=== PATIENT | female | born 1960 | race Caucasian/White ===

== ENCOUNTER → 2017-06-30 | Outpatient (CLI) | payer MEDICARE, MEDICAID ==
[~2017-06-30] MED LIST: ALBU17AE23 IH; ALBU8.5H2 IH; ASP81TEC PO; BUDE6HFA IH; BUDE6HFA INH; CEFU500T PO; CLAR-19 PO; CTLP20T PO; CYAN10007 PO; DOCU100C37 PO; DOXY100C42 PO; FLUO20CA25 PO; FLUT1DIS26 IH; HYDR-3816 PO; HYDR-700 PO; HYDR1TAB PO; IBUP-1773 PO; LEVA1.25 IH; LORA1TAB PO; LTH450TCR PO; LVT.1T PO; MAG30ORA2 PO; MULT-927 PO; NIAC1TBM5 PO; OXYGEN; PRCD5U PO; PRD20T PO; RT-ALBUINH IH; SEIZURE MEDICATION PO; SERT100T8 PO; SERT25TA PO; SERT50TA2 PO; SIME80TA16 PO; THYR90TA PO; TIOT18CA IH; TIOT18CA2 IH; TOPI100T2 PO; TRAM-21 PO
--- NOTE | 2017-06-30 12:56 | Diagnostic Imaging Report ---
INDICATION: Abdominal pain. FINDINGS: There are nonobstructing stones in the kidneys bilaterally. The bowel gas pattern is nonspecific. The osseous structures are unremarkable. IMPRESSION: Bilateral nephrolithiasis left greater than right. Nonspecific bowel gas pattern. Dictated by: Dictated on workstation # [id number]
== END ==
LOC: RAD 12:09
PROVIDERS: ATTEND Urology
DX: N20.0 Calculus of kidney (principal)
CPT/HCPCS: 74018

== ENCOUNTER 2017-07-11 05:29 | Outpatient (CLI) | payer MEDICARE, MEDICAID ==
[~2017-07-11] VITALS: Ht 172.7 cm; Wt 70.3 kg
[~2017-07-11 05:29] MED LIST changes: -GLYC10.7 IH; -HYDR-3875 PO; -IPRA0.2S51 IH; -NITR-65 PO; -PRAZ1CAP2 PO; -SERT50TA9 PO; -TAMS0.4C98 PO
[2017-07-11] MEDS ORDERED: GLYC10.7 IH (12:30)
[2017-07-11] MEDS ORDERED: SERT50TA9 PO (12:30)
[2017-07-11] MEDS ORDERED: PRAZ1CAP2 PO (12:30)
[2017-07-11] MEDS ORDERED: LTH450TCR PO (12:30)
[2017-07-11] MEDS ORDERED: IPRA0.2S51 IH (12:30)
== END 2017-07-11 14:03 ==
LOC: PREOP 05:29
PROVIDERS: ATTEND Urology
DX: Z01.818 Encounter for other preprocedural examination (principal); N20.0 Calculus of kidney

== ENCOUNTER → 2017-07-11 | Outpatient (CLI) | payer MEDICARE, MEDICAID ==
[~2017-07-11] MED LIST changes: +GLYC10.7 IH; +HYDR-34 PO; -HYDR-3816 PO; +HYDR-3875 PO; +IPRA0.2S51 IH; +NITR-65 PO; +PRAZ1CAP2 PO; +SERT50TA9 PO; +TAMS0.4C98 PO
--- NOTE | 2017-07-11 13:17 | Diagnostic Imaging Report ---
EXAMINATION: Nuclear medicine parathyroid sestamibi exam with SPECT CT imaging. DATE: July 11, 2017. INDICATION: 57-year-old female, elevated parathyroid hormone levels. COMPARISON: None. FINDINGS: 20.2 mCi of technetium labeled sestamibi. Scintigraphic images at the level of the chest and neck were obtained at 20 minutes and 2 hours post injection. SPECT CT imaging was performed 2 hours post injection. On initial imaging, there is radiotracer uptake in the salivary glands and thyroid which is a normal radiotracer distribution. There is some fading of activity at the level of the thyroid on delayed imaging without more prominent nodular area of uptake in the neck or visualized portions of the chest. On SPECT CT imaging, the radiotracer activity is projecting within the thyroid gland. IMPRESSION: No nuclear medicine evidence of parathyroid adenoma at the level of the chest or neck. Dictated by: Dictated on workstation # [id number]
== END ==
LOC: CARD 08:43
PROVIDERS: ATTEND Urology
DX: E21.5 Disorder of parathyroid gland, unspecified (principal)
CPT/HCPCS: 78072

== ENCOUNTER 2017-07-15 05:54 | Day surgery (SDC) | payer MEDICARE, MEDICAID ==
[~2017-07-15] VITALS: Ht 172.7 cm; Wt 70.3 kg
[~2017-07-15 05:54] MED LIST changes: +GLYC10.7 IH; +IPRA0.2S51 IH; +PRAZ1CAP2 PO; +SERT50TA9 PO
[2017-07-15] MEDS ORDERED: MIDAZOLAM 2 MG/2 ML (VERSED) VIAL ONE (07:00)
[2017-07-15] MEDS ORDERED: LEVOFLOXACIN 500 MG/D5W 100 ML (PRE-MIX) IV ONE (07:00)
[2017-07-15] MEDS ORDERED: fentaNYL INJECTION 100 MCG/2 ML AMP ONE (07:00)
--- NOTE | 2017-07-15 07:14 | Progress Note-Pre Operative ---
Pre-Operative Progress Note H&P Reviewed The H&P was reviewed, patient examined and no changes noted. Date Seen by Provider: Jul 15, 2017 Time Seen by Provider: 07:14 Date H&P Reviewed: Jul 15, 2017 Time H&P Reviewed: 07:14 Pre-Operative Diagnosis: LT RENAL STONES NAGY CONNOR MD Jul 15, 2017 7:14 am
--- NOTE | 2017-07-15 07:16 | Discharge Inst-Urology ---
Discharge Inst-Urology Discharge Medications New, Converted, or Re-newed RX: RX on Chart Patient Instructions/Follow Up Plan Please make appointment to been seen in office Friday 07/28, KUB prior to it KUB on way home Post ESWL instructions Increase oral fluids for 48 hours and then as needed. Diet and Activity as tolerated. If questions or concerns contact your physician Or seek help at emergency department. ANGY CONNOR MD Jul 15, 2017 7:16 am
--- NOTE | 2017-07-15 07:17 | Progress Note-Post Operative ---
Post-Operative Progess Note Surgeon (s)/Nursing Attendant (s) Surgeon ANGY CONNOR MD Nursing Attendant: N/A Pre-Operative Diagnosis LT RENAL STONES Post-Operative Diagnosis SAME Procedure & Operative Findings Date of Procedure 07/15/17 Procedure Performed/Findings LT ESWL Anesthesia Type GENERAL Estimated Blood Loss Estimated blood loss (mL): N/A Specimens/Packing Specimens Removed N/A Packing: N/A ANGY CONNOR MD Jul 15, 2017 7:17 am
[2017-07-15] MEDS ORDERED: LEVOFLOXACIN 500 MG/100 ML IV 100 ML IV ONE (07:30)
[2017-07-15] MEDS: LACTATED RINGERS 1,000 ML IV PRN ×2 (07:30→07:54)
[2017-07-15 07:39] VITALS: BP 121/89
[2017-07-15] MEDS ORDERED: LIDOCAINE JELLY 2% (XYLOCAINE) 5 ML TUBE ONE (07:58)
[2017-07-15] MEDS ORDERED: ONDANSETRON 4 MG/2 ML (SDV) Z0FRAN ONE (07:58)
[2017-07-15] MEDS ORDERED: FUROSEMIDE 40 MG/4 ML INJ (LASIX) ONE (07:58)
[2017-07-15] MEDS ORDERED: proPOfol 200 MG/20 ML (DIPRIVAN) VIAL IV ONE (07:58)
[2017-07-15] MEDS ORDERED: SEVOFLURANE (ULTANE) 15 ML INHAL SOLN ONE ×2 (07:58)
[2017-07-15] MEDS ORDERED: LIDOCAINE PF 2% 5 ML (XYLOCAINE) VIAL ONE ×2 (07:58→07:59)
[2017-07-15] MEDS ORDERED: KETOROLAC 30 MG/ML VIAL ONE (07:58)
[2017-07-15] MEDS ORDERED: morphine INJ 10 MG/ML 1ML (SYR OR VIAL) IVP PRN (08:15)
[2017-07-15] MEDS ORDERED: MEPERIDINE (DEMEROL) INJ 50 MG/ML IVP PRN (08:15)
[2017-07-15] MEDS ORDERED: ONDANSETRON 4 MG/2 ML (SDV) Z0FRAN IVP PRN (08:15)
--- NOTE | 2017-07-15 08:22 | OPERATIVE REPORT ---
DATE OF SERVICE: 07/15/2017 PREOPERATIVE DIAGNOSIS: Left renal stones. POSTOPERATIVE DIAGNOSIS: Left renal stones. OPERATION PERFORMED: Left ESWL. SURGEON: Roberto Connor MD ANESTHESIA: General. COMPLICATIONS: None. PROCEDURE: Under satisfactory general anesthesia, the patient in supine position on the ESWL table, the left renal stones were localized. Shocks were delivered at kV of 5, a total of 2500 shocks completely fragmented the stone. The patient received 30 mg of Toradol and 40 mg of Lasix at the end of the procedure. She tolerated the procedure and anesthesia well and was sent to recovery room in stable condition. Job ID: [id number] DocumentID: [id number] Dictated Date: 07/15/2017 07:51:50 [employer]inder Crew Worker Date: 07/15/2017 08:21:30 Dictated By: ROBERTO CONNOR MD
[2017-07-15 08:50] VITALS: BP 133/83
[2017-07-15 09:20] VITALS: BP 132/78
[2017-07-15] MEDS ORDERED: TAMS0.4C98 PO (09:45)
[2017-07-15] MEDS ORDERED: NITR-65 PO (09:45)
[2017-07-15] MEDS ORDERED: HYDR-3875 PO (09:45)
[2017-07-15 09:50] VITALS: BP 133/83
[2017-07-15 10:12] VITALS: BP 133/83
--- NOTE | 2017-07-15 12:30 | Diagnostic Imaging Report ---
CLINICAL INDICATION: Post ESWL on the left. EXAM: KUB x-ray. COMPARISON: KUB x-ray dated 07/15/2017. FINDINGS: There is a roughly 9 mm area of calcification overlying the inferior left renal shadow. This appears to be near the region of the previously seen calcification. There is also slight change in orientation of at least two calcifications in the medial left pelvis region. Stones in the distal left ureter may be considered. There are again seen focal calcifications over the right kidney, which may represent renal stones. IMPRESSION: 1: Bilateral nephrolithiasis (left side more than the right) is again seen. 2: There is change in configuration of at least two calcifications overlying the medial left pelvis region, which may represent stones in the left ureter. CT scan would better evaluate if clinically necessary. Dictated by: Dictated on workstation # [id number]
--- NOTE | 2017-07-15 13:01 | Diagnostic Imaging Report ---
INDICATION: Evaluation for lithotripsy. COMPARISON: 06/30/2017. FINDINGS: Stable 7 mm calcification overlying the lower pole of the left kidney. No definitive right renal calculi. Nonobstructed bowel gas pattern. Normal regional skeleton. IMPRESSION: Stable 7 mm calculus potentially in the lower pole of the left kidney. Dictated by: Dictated on workstation # [id number]
== END 2017-07-15 10:12 | disposition home or self-care (01) ==
LOC: SDC 05:54
PROVIDERS: ATTEND Urology
DX: N20.0 Calculus of kidney (principal); I25.10 Atherosclerotic heart disease of native coronary artery without angina pectoris; J44.9 Chronic obstructive pulmonary disease, unspecified; F31.9 Bipolar disorder, unspecified; F17.210 Nicotine dependence, cigarettes, uncomplicated; Z79.899 Other long term (current) drug therapy
CPT/HCPCS: 74018; 87081

== ENCOUNTER → 2017-07-28 | Outpatient (CLI) | payer MEDICARE, MEDICAID ==
[~2017-07-28] MED LIST changes: +HYDR-3875 PO; +NITR-65 PO; +TAMS0.4C98 PO
--- NOTE | 2017-07-28 14:29 | Diagnostic Imaging Report ---
INDICATION: Status post left-sided ESWL. Followup. COMPARISON: 07/15/2017 FINDINGS: Two supine radiographic views of the abdomen were obtained. Small bowel loops are nondistended. There is no large collection of free intraperitoneal air. Punctate extraosseous calcification is again seen overlying the inferior pole of the right kidney suspicious for renal calculus. Large calculus is also noted on the left. There is a second smaller renal calculus seen more superiorly and laterally on the left as well. These calculi appear stable compared to prior exam. Ill-defined subtle extraosseous calcifications are again noted projecting over the pelvis. These may be on the basis of calcified atherosclerosis or venous phleboliths. Distal ureteral or urinary bladder calculi are not entirely excluded. No unexpected radiopaque foreign body seen. Bony structures show no acute abnormalities. IMPRESSION: 1. Nonobstructive small bowel gas pattern. 2. Extraosseous calcifications as described above. Dictated by: Dictated on workstation # [id number]
== END ==
LOC: RAD 13:59
PROVIDERS: ATTEND Urology
DX: N20.0 Calculus of kidney (principal); Z98.890 Other specified postprocedural states
CPT/HCPCS: 74018

== ENCOUNTER 2017-09-09 18:41 | Outpatient (RCR) | payer MEDICARE, MEDICAID ==
--- NOTE | 2017-09-08 16:03 | Diagnostic Imaging Report ---
Indication: Status post lithotripsy. Time of exam 3:55 PM Correlation is made with prior study from 07/28/2017. Previously noted calcific densities overlying bilateral renal shadows are unchanged. No definite calculi along the course of the ureters are seen. Bowel gas pattern is unremarkable. Impression: Bilateral renal calculi, similar to the exam from 07/28/2017. Dictated by: Dictated on workstation # [id number]
== END 2017-12-07 | disposition home or self-care (01) ==
LOC: RAD 18:41
PROVIDERS: ATTEND Urology
DX: N20.0 Calculus of kidney (principal); Z98.890 Other specified postprocedural states
CPT/HCPCS: 36415; 74018; 82140; 82340; 82507; 82570; 83735; 83945; 83986; 84105; 84133; 84300; 84392; 84560

== ENCOUNTER → 2017-12-04 | Outpatient (CLI) | payer MEDICARE, MEDICAID ==
[2017-12-04 13:47] LABS: ALANINE AMINOTRANSFERASE 14 U/L (0-55); ALBUMIN 4.6 GM/DL (3.2-4.5); ALKALINE PHOSPHATASE 113 U/L (40-136); BILIRUBIN,TOTAL 0.5 MG/DL (0.1-1.0); BUN/CREATININE RATIO 3; CALCIUM 10.5 MG/DL (8.5-10.1); CARBON DIOXIDE 24 MMOL/L (21-32); CHLORIDE 109 MMOL/L (98-107); CREATININE SERUM 0.86 MG/DL (0.60-1.30); GFR ESTIMATED > 60; GLUCOSE 73 MG/DL (70-105); POTASSIUM 4.1 MMOL/L (3.6-5.0); SODIUM 139 MMOL/L (135-145); TOTAL PROTEIN 7.7 GM/DL (6.4-8.2)
== END ==
LOC: LAB 12:55
PROVIDERS: ATTEND Nurse Practitioner Psychiatric/Mental Health
DX: Z51.81 Encounter for therapeutic drug level monitoring (principal); F31.30 Bipolar disorder, current episode depressed, mild or moderate severity, unspecified; Z79.899 Other long term (current) drug therapy
CPT/HCPCS: 36415; 80053; 80178; 84439; 84443

== ENCOUNTER → 2018-06-30 | Outpatient (CLI) | payer MEDICARE, MEDICAID ==
--- NOTE | 2018-06-30 13:45 | Diagnostic Imaging Report ---
PROCEDURE: US Thyroid. TECHNIQUE: Multiple real-time grayscale images were obtained of the thyroid in various projections. INDICATION: Hyperthyroidism. COMPARISON: There are no prior studies available for comparison. FINDINGS: The thyroid gland is prominent but not enlarged. The right lobe measures 4.1 x 2.0 x 1.7 cm while the left lobe is estimated to be 4.6 x 1.9 x 1.8 cm (normal gland size 4-5 x 2 x 2 cm or less). Each lobe has somewhat of a heterogeneous appearance. There is a small 0.7 x 0.6 x 0.9 cm area of slightly altered echogenicity in the superior pole of the left lobe. There is no discrete nodule in the right lobe. IMPRESSION: 1. The thyroid gland is prominent and each lobe has a heterogeneous appearance. There is also a question of a small subcentimeter nodule in the left lobe. 2. Reportedly a nuclear medicine thyroid scan is pending for further evaluation. Dictated by: Dictated on workstation # [id number]
--- NOTE | 2018-07-01 13:34 | Diagnostic Imaging Report ---
EXAM: Nuclear Medicine thyroid imaging and uptake. DATE: 07/01/2018 at 12:12 PM. INDICATION: 58-year-old female, hyperthyroidism. COMPARISON: Ultrasound thyroid of June 30, 2018. TECHNIQUE: 198 ?Ci of I-123 was administered. Subsequent scintigraphic images of the thyroid were obtained in multiple projections. 6 and 24-hour thyroid uptake rise were obtained. FINDINGS: The 6 hour thyroid uptake is calculated at 23.1%. The 24-hour thyroid uptake is calculated at 49.6%. Normal range for uptake at 4-6 hours (5-20%). Normal range of uptake at 24 hours (10-35%). There is a mild asymmetric increase in radiotracer uptake throughout the left lobe of the thyroid compared to the right. There is no identified radiotracer avid or photopenic thyroid nodule. IMPRESSION: 1. Elevated thyroid uptake values which may relate to thyroiditis. Graves' disease would be a differential diagnostic consideration. 2. No identified focal radiotracer avid or photopenic thyroid nodule. Dictated by: Dictated on workstation # [id number]
== END ==
LOC: CARD 11:01
PROVIDERS: ATTEND Family Medicine
DX: E05.90 Thyrotoxicosis, unspecified without thyrotoxic crisis or storm (principal)
CPT/HCPCS: 76536; 78014

== ENCOUNTER → 2018-07-07 | Outpatient (CLI) | payer MEDICARE, MEDICAID | LOC: CARD 14:23 | PROVIDERS: ATTEND Internal Medicine Interventional Cardiology | DX: R42 Dizziness and giddiness (principal); R00.2 Palpitations; R06.02 Shortness of breath | CPT/HCPCS: 93225; 93226 ==

== ENCOUNTER → 2018-07-23 | Outpatient (CLI) | payer MEDICARE, MEDICAID ==
[~2018-07-23] MED LIST changes: +REGADENOSON 0.4 MG/5 ML SYR (LEXISCAN) IV ONE
[2018-07-23] MEDS: CATHETER FLUSH 10 ML SYR IV PRN ×2 (07:26→08:59)
[2018-07-23 08:57] VITALS: BP 137/81
--- NOTE | 2018-07-24 13:29 | Cardiology Stress Test Report ---
Stress Test Report Type of NM Stress Test: Test Type: LEXISCAN 0.4MG/5ML Date of Procedure/Referring: Date of Procedure: Jul 23, 2018 PCP Uma Mackay MD Admitting Physician Yusra Siddiqi MD Indications: Chest pain, CAD, shortness of breath. Baseline Heart Rate: 76 Baseline Blood Pressure: Blood Pressure Systolic: 137 Blood Pressure Diastolic: 81 Baseline EKG: Baseline EKG: sinus rhythm Summary & Conclusion: Summary: The patient was brought to the stress lab after informed consent was taken. Stress test was performed according to the Lexiscan protocol. 0.4 mg of IV Lexiscan was given. Low-grade exercise was performed. Baseline EKG showed sinus rhythm at 76 BPM. Initial blood pressure was 127/78 mmHg. Maximum heart rate was 94 bpm and blood pressure 136/100 mmHg. Patient did not have any chest pain, arrhythmias or ST segment changes during the stress test. 10.88 mCi of Myoview were given for rest imaging and 30.8 mCi of Myoview given for stress imaging. Transient ischemic dilatation score 1.03 , EF 54 percent. Normal wall motion. Normal myocardial perfusion imaging during rest and stress. Conclusion: Pharmacological stress test was negative for ischemia. Normal LV function with no wall motion abnormalities. Normal myocardial perfusion imaging during rest and stress. Uma MACKAY MD Jul 24, 2018 1:29 pm
== END ==
LOC: CARD 07:08
PROVIDERS: ATTEND Internal Medicine Interventional Cardiology
DX: I25.10 Atherosclerotic heart disease of native coronary artery without angina pectoris (principal); R42 Dizziness and giddiness; R07.9 Chest pain, unspecified; R06.02 Shortness of breath; R00.2 Palpitations
CPT/HCPCS: 78452; 93017

== ENCOUNTER → 2018-09-08 | Outpatient (CLI) | payer MEDICARE, MEDICAID ==
[~2018-09-08] MED LIST changes: -REGADENOSON 0.4 MG/5 ML SYR (LEXISCAN) IV ONE
[2018-09-08 11:59] LABS: ABG BASE EXCESS -1.4 MMOL/L (-2.5-2.5); ABG OXYGEN SATURATION 97 % (94-100); ABG PCO2 36 MMHG (35-45); ABG PH 7.41 (7.37-7.43); ABG PO2 69 MMHG (79-93); ABG TCO2 24.2 MMOL/L (21.0-31.0); ALLENS TEST YES-POS
[2018-09-08 12:00] LABS: PATIENT TEMP 95.4
== END ==
LOC: LAB 11:11
PROVIDERS: ATTEND Internal Medicine Critical Care Medicine
DX: R06.00 Dyspnea, unspecified (principal); J30.9 Allergic rhinitis, unspecified; R06.89 Other abnormalities of breathing; R05 Cough; F17.200 Nicotine dependence, unspecified, uncomplicated
CPT/HCPCS: 36600; 82805

== ENCOUNTER → 2018-10-13 | Outpatient (CLI) | payer MEDICARE, MEDICAID ==
--- NOTE | 2018-10-13 13:30 | Diagnostic Imaging Report ---
INDICATION: Bilateral renal stones. TECHNIQUE: 2 supine view of the abdomen 9:33 AM CORRELATION STUDY: 09/08/2017 FINDINGS: There is presence of calcification superimposed over bilateral renal silhouettes, left greater than right. Large amount of calcification projected over the inferior pole of the left kidney, in aggregate measures 9 x 5 mm. Additional punctate calcifications are also present over the bilateral renal silhouettes. Moderate amount of overlying bowel gas and stool is present. There is faint calcification of the left hemipelvis. Given position and appearance, possibly distal left ureteral stone is not excluded. However, this appears relatively stable from prior study. Visualized os structures appearing unremarkable. IMPRESSION: 1. Calcifications projected over bilateral renal silhouettes, overall generally stable in size, number and distribution. Faint calcification of the left hemipelvis. Given position, could be potentially be calcification of the distal left ureter but is unchanged from prior study therefore, likely vasculature. Dictated by: Dictated on workstation # [id number]
== END ==
LOC: RAD 09:24
PROVIDERS: ATTEND Urology
DX: N20.0 Calculus of kidney (principal)
CPT/HCPCS: 74018

== ENCOUNTER → 2018-11-09 | Outpatient (CLI) | payer MEDICARE, MEDICAID ==
[~2018-11-09] MED LIST changes: +HOLD METFORMIN - RECEIVED CONTRAST 20 ML VIAL IV SCH; +IOHEXOL 350 MG/ML 100 ML (OMNIPAQUE 350) VIAL IV ONE; +NS 100 ML (IVPB) BAG IV ONE; +RT-ALBUTEROL SULF 2.5 MG/3 ML PRE-MIX VIAL INH ONE
[2018-11-09 09:33] LABS: BUN/CREATININE RATIO 6; CREATININE SERUM 0.84 MG/DL (0.60-1.30); GFR ESTIMATED > 60
--- NOTE | 2018-11-09 18:07 | Diagnostic Imaging Report ---
PROCEDURE: CT chest with contrast only. TECHNIQUE: Multiple contiguous axial images were obtained through the chest after administration of intravenous contrast. Auto Exposure Controls were utilized during the CT exam to meet ALARA standards for radiation dose reduction. INDICATION: Cough, shortness of breath. FINDINGS: There are no prior CT chest examinations available for comparison. The plain film chest exam of 05/08/2014 failed to show any sign of an acute cardiopulmonary abnormality. On this exam, there is no defect within the pulmonary arteries to indicate a pulmonary embolus. The aorta is not abnormally dilated, and there is no sign of a dissection. The heart size is within normal limits. There may be a few sparse coronary artery calcifications. There are emphysematous changes involving both lungs. There is no sign of failure, pneumonia, or a pleural effusion to indicate an acute abnormality. There is no parenchymal lung mass identified. There is no mediastinal or hilar adenopathy. The thyroid gland where visualized is unremarkable. There is no obvious breast mass. According to our records, the patient has not had a mammogram. If the patient has had a recent (within the last year) mammogram elsewhere, then no further imaging would be necessary. Otherwise, mammography should be performed. The sections through the upper abdomen fail to show any sign of an acute abnormality. However, there is scar formation involving the left kidney, and there are several nonobstructive calculi within the left kidney. The largest of these is in the superior pole and measures 8.9 mm. There is also mild scar formation involving the right kidney, and there are a few small calcifications associated with the right kidney as well. These findings are similar to the prior CT abdomen/pelvis exam of 03/27/2016. The bone windows show no evidence for a fracture or for a destructive lesion. IMPRESSION: 1. There is no evidence for an acute cardiopulmonary abnormality. 2. There are emphysematous changes involving both lungs. 3. There is no obvious breast mass. 4. There is scar formation in the left kidney with nephrolithiasis. Similar but much less severe changes are also seen involving the right kidney. These findings are nonspecific but could be a sequela of prior episodes of pyelonephritis or trauma. Dictated by: Dictated on workstation # [id number]
== END ==
LOC: RAD 08:55
PROVIDERS: ATTEND Nurse Practitioner Family
DX: J43.9 Emphysema, unspecified (principal); J30.9 Allergic rhinitis, unspecified; N20.0 Calculus of kidney; N28.89 Other specified disorders of kidney and ureter; F17.200 Nicotine dependence, unspecified, uncomplicated
CPT/HCPCS: 36415; 71260; 82565; 84520; 94060; 94726; 94729

== ENCOUNTER 2018-11-23 13:57 | Outpatient (RCR) | payer MEDICARE, MEDICAID ==
[~2018-11-23] VITALS: Ht 172.7 cm; Wt 68.1 kg
[~2018-11-23 13:57] MED LIST changes: -HOLD METFORMIN - RECEIVED CONTRAST 20 ML VIAL IV SCH; -IOHEXOL 350 MG/ML 100 ML (OMNIPAQUE 350) VIAL IV ONE; -NS 100 ML (IVPB) BAG IV ONE; -RT-ALBUTEROL SULF 2.5 MG/3 ML PRE-MIX VIAL INH ONE
[2018-11-23 14:09] VITALS: BP 115/60
[2018-11-24 09:20] VITALS: BP 120/60
[2018-11-24 10:00] VITALS: BP 102/64
[2018-11-26 09:30] VITALS: BP 100/60
[2018-11-26 10:31] VITALS: BP 100/60
[2018-12-01 09:20] VITALS: BP 121/63
[2018-12-08 09:50] VITALS: BP 112/70
[2018-12-08 10:32] VITALS: BP 112/70
[2018-12-10 09:30] VITALS: BP 115/60
[2018-12-10 10:26] VITALS: BP 120/60
[2018-12-15 09:30] VITALS: BP 102/65
[2018-12-15 10:42] VITALS: BP 98/63
[2018-12-17 09:30] VITALS: BP 131/60
[2018-12-17 10:30] VITALS: BP 120/60
[2018-12-22 09:30] VITALS: BP 120/64
[2018-12-29 09:25] VITALS: BP 100/60
[2018-12-29 10:20] VITALS: BP 121/79
[2018-12-31 09:30] VITALS: BP 115/60
[2018-12-31 10:35] VITALS: BP 120/80
[2019-01-05 09:20] VITALS: BP 130/60
[2019-01-05 10:20] VITALS: BP 96/70
[2019-01-12 09:30] VITALS: BP 120/60
[2019-01-12 10:45] VITALS: BP 120/60
[2019-01-14 10:45] VITALS: BP 140/100
[2019-01-14 11:18] VITALS: BP 130/80
[2019-01-19 09:30] VITALS: BP 134/82
[2019-01-19 10:20] VITALS: BP 98/58
[2019-01-21 09:35] VITALS: BP 122/70
[2019-01-21 10:25] VITALS: BP 118/62
[2019-01-26 09:40] VITALS: BP 140/60
[2019-01-26 10:30] VITALS: BP 112/70
[2019-02-02 09:30] VITALS: BP 125/50
[2019-02-02 10:25] VITALS: BP 100/50
[2019-02-04 09:35] VITALS: BP 140/84
[2019-02-04 10:30] VITALS: BP 120/60
== END 2019-02-21 | disposition home or self-care (01) ==
LOC: PULM 13:57
PROVIDERS: ATTEND Nurse Practitioner Family
DX: J44.9 Chronic obstructive pulmonary disease, unspecified (principal)
CPT/HCPCS: 99211

== ENCOUNTER 2018-12-11 20:54 | Outpatient (CLI) | payer MEDICARE, MEDICAID | END 2018-12-12 06:45 | disposition home or self-care (01) | LOC: SLEEP 20:54 | PROVIDERS: ATTEND Nurse Practitioner Family | DX: G47.00 Insomnia, unspecified (principal); J44.9 Chronic obstructive pulmonary disease, unspecified; I49.1 Atrial premature depolarization; I49.3 Ventricular premature depolarization; G47.10 Hypersomnia, unspecified; F17.200 Nicotine dependence, unspecified, uncomplicated | CPT/HCPCS: 95810 ==

== ENCOUNTER → 2019-07-05 | Outpatient (CLI) | payer MEDICARE, MEDICAID ==
[~2019-07-05] MED LIST changes: -TAMS0.4C98 PO; +TMSL.4C PO
== END ==
LOC: LAB 10:43
PROVIDERS: ATTEND Nurse Practitioner Psychiatric/Mental Health
DX: F31.9 Bipolar disorder, unspecified (principal)
CPT/HCPCS: 36415; 80178

== ENCOUNTER → 2019-10-12 | Outpatient (CLI) | payer MEDICARE, MEDICAID ==
--- NOTE | 2019-10-12 14:21 | Diagnostic Imaging Report ---
INDICATION: Bilateral renal stones. TIME OF EXAM: 2:06 PM. COMPARISON: 10/13/2018. FINDINGS: Multiple calcific densities overlie the left renal shadow mid to lower pole, similar to the prior exam. Tiny punctate calcifications overlie the lower pole of the right kidney. No definite calculus along the expected course of the ureters is seen. The bowel gas pattern is unremarkable. There is no free air. IMPRESSION: Stable bilateral renal calculi when compared with the examination of 1 year earlier. Dictated by: Dictated on workstation # [id number]
== END ==
LOC: RAD 13:27
PROVIDERS: ATTEND Urology
DX: N20.0 Calculus of kidney (principal)
CPT/HCPCS: 74018

== ENCOUNTER → 2020-02-15 | Outpatient (CLI) | payer MEDICARE, MEDICAID ==
--- NOTE | 2020-02-15 14:26 | Diagnostic Imaging Report ---
EXAMINATION: CT Lung Screening. INDICATION: 49 pack-year smoking history. TECHNIQUE: Noncontrast, low-dose CT imaging performed according to the lung cancer screening protocol. Auto Exposure Controls were utilize during the CT exam to meet ALARA standards for radiation dose reduction. COMPARISON: None. TECHNIQUE/COMPARISON: Images of the thorax were obtained using the CT low dose lung cancer screening protocol. There are no prior CT low-dose lung cancer screening exams available for comparison. The previous CT chest exam performed on 11/09/2018 noted emphysematous changes involving both lungs but failed to show any sign of a parenchymal lung mass. There was no acute cardiopulmonary abnormality identified either. FINDINGS: On this exam, there is still no parenchymal lung mass identified. The emphysematous changes seen previously are again evident and do not seem to have progressed. There are small areas of scar formation involving both lungs as well. There is no sign of failure, pneumonia, or pleural effusion to indicate an acute abnormality. The heart size is within normal limits and stable when compared to the prior exam. Coronary artery calcifications are noted. The aorta is not abnormally dilated. There is no obvious mediastinal or hilar adenopathy. The thyroid gland was not well-visualized. There is no definite breast mass noted. The sections through the upper abdomen fail to show any sign of an acute abnormality. The calcifications involving the left kidney seen previously are unchanged. The bone windows are unremarkable for a fracture or destructive lesion. IMPRESSION: 1. There is no parenchymal lung mass identified. A followup low-dose lung cancer screening exam in 1 year would be recommended for continued evaluation. 2. There are emphysematous changes involving both lungs but there is no sign of an acute cardiopulmonary abnormality. 3. There is coronary artery disease. 4. Left nephrolithiasis. LUNG-RADS CATEGORY:1 MODIFIER: OTHER SIGNIFICANT FINDINGS: Dictated by: Dictated on workstation # [id number]
== END ==
LOC: RAD 12:28
PROVIDERS: ATTEND Nurse Practitioner Family
DX: Z12.2 Encounter for screening for malignant neoplasm of respiratory organs (principal); J43.9 Emphysema, unspecified; I25.10 Atherosclerotic heart disease of native coronary artery without angina pectoris; N20.0 Calculus of kidney; F17.210 Nicotine dependence, cigarettes, uncomplicated

== ENCOUNTER → 2021-03-02 | Outpatient (CLI) | payer MEDICARE, MEDICAID ==
[~2021-03-02] MED LIST changes: +SERT-413 PO; +SERT-414 PO; -SERT100T8 PO; -SERT50TA9 PO
== END ==
LOC: LABNPT 06:08
PROVIDERS: ATTEND Nurse Practitioner Family
DX: G47.10 Hypersomnia, unspecified (principal); G47.30 Sleep apnea, unspecified; G47.50 Parasomnia, unspecified; Z20.822 Contact with and (suspected) exposure to COVID-19
CPT/HCPCS: 87635

== ENCOUNTER 2021-03-06 20:24 | Outpatient (CLI) | payer MEDICARE, MEDICAID | END 2021-03-07 06:42 | disposition home or self-care (01) | LOC: SLEEP 20:24 | PROVIDERS: ATTEND Nurse Practitioner Family | DX: G47.33 Obstructive sleep apnea (adult) (pediatric) (principal); G47.50 Parasomnia, unspecified; G47.10 Hypersomnia, unspecified | CPT/HCPCS: 95810 ==

== ENCOUNTER → 2021-03-07 | Outpatient (CLI) | payer MEDICARE, MEDICAID | LOC: RT 07:14 | PROVIDERS: ATTEND Nurse Practitioner Family | DX: J44.9 Chronic obstructive pulmonary disease, unspecified (principal) | CPT/HCPCS: 94060; 94726; 94729 ==

== ENCOUNTER → 2021-03-07 | Outpatient (CLI) | payer MEDICARE, MEDICAID ==
[~2021-03-07] MED LIST changes: +RT-ALBUTEROL SULF 2.5 MG/3 ML PRE-MIX VIAL INH ONE
--- NOTE | 2021-03-07 10:25 | Diagnostic Imaging Report ---
EXAMINATION: CT chest without contrast (lung screening). TECHNIQUE: Multiple contiguous axial images were obtained through the chest without the use of intravenous contrast according to lung cancer screening protocol. All CT scans use one or more of the following dose optimizing techniques: automated exposure control, MA and/or KvP adjustment based on patient size and exam type or iterative reconstruction. HISTORY: 50 pack year history of smoking. COMPARISON: 02/15/2020 FINDINGS: Thyroid: The thyroid is normal. Mediastinum: Heart size is normal without significant pericardial effusion. Calcifications of the aorta and coronary vessels. Thoracic aorta is normal in caliber. No suspicious lymphadenopathy. Lungs and airways: There are background emphysematous changes of lungs without consolidation, pleural effusion, or pneumothorax. There is atelectasis in the lung bases. Scattered areas of linear atelectasis or scarring seen. Stable nodular focus of scarring in the right lower lobe measuring up to 0.3 cm (series 2 image 142). The airways are normal. Upper abdomen: The subphrenic structures are normal. Musculoskeletal: Degenerative changes of the spine without suspicious osseous lesion or compression fracture. IMPRESSION: 1. No new suspicious pulmonary nodules. Recommend continued annual low-dose CT screening. 2. COPD. LUNG-RADS CATEGORY: 2 MODIFIER: S Dictated by: Dictated on workstation # [id number]
== END ==
LOC: RAD 07:17
PROVIDERS: ATTEND Nurse Practitioner Family
DX: Z12.2 Encounter for screening for malignant neoplasm of respiratory organs (principal); J44.9 Chronic obstructive pulmonary disease, unspecified; R91.8 Other nonspecific abnormal finding of lung field; F17.210 Nicotine dependence, cigarettes, uncomplicated
CPT/HCPCS: 71271

== ENCOUNTER 2021-08-08 18:18 | Emergency (ER) | payer MEDICARE, MEDICAID ==
[~2021-08-08] VITALS: Ht 172 cm; Wt 68.0 kg
[~2021-08-08 18:18] MED LIST changes: -RT-ALBUTEROL SULF 2.5 MG/3 ML PRE-MIX VIAL INH ONE
--- NOTE | 2021-08-08 18:42 | ED Cardiac General ---
History of Present Illness General Stated Complaint: CHEST PAIN, SOB Source: patient History of Present Illness Date Seen by Provider: Aug 08, 2021 Time Seen by Provider: 18:22 Initial Comments PT ARRIVES VIA POV FROM HOME C/O CHEST PAIN AND SHORTNESS OF BREATH FOR THE LAST COUPLE OF DAYS STATES CHEST PAIN IS A TIGHTNESS AROUND LOWER CHEST/UNDER BREASTS AND IS WORSE ON THE RIGHT. NO RADIATION OF PAIN DOES NOT HURT TO BREATHE OR MOVE PT HAS COPD AND IS ALWAYS SHORT 0F BREATH AND ALWAYS HAS A COUGH, BUT SHORTNESS OF BREATH HAS BEEN WORSE FOR THE LAST COUPLE OF DAYS, ESPECIALLY WITH MINIMAL EXERTION USED ALBUTEROL INHALER X 1 TODAY AT 1700 WITHOUT IMPROVEMENT ( NORMALLY USES HER ALBUTEROL INHALER 2-4 TIMES A DAY EVERY DAY--DOES NOT HAVE A SPACER. HAS BEEN PRESCRIBED BEVESPI INHALER BUT NEVER PICKED UP RX DUE TO COST) STATES SHE HAS HAD ONGOING SHORTNESS OF BREATH, ESPECIALLY WITH EXERTION, AND WENT TO THE [facility] 2 WEEKS AGO FOR ROUTINE EXAM WITH THIS COMPLAINT, AND WAS REFERRED TO SENIOR MILITARY ANALYST, HAS NOT SEEN SENIOR MILITARY ANALYST YET. NO FEVER/SWEATS/CHILLS NO NAUSEA/VOMITING NO SWELLING IN LEGS/ FEET, BUT STATES THE LAST FEW MONTHS, BOTH OF HER LEGS HAVE BEEN EXTREMELY COLD PT HAS HAD COVID-19 VACCINE X 3, AND FLU VACCINE. PT HAS HAD CARDIAC CATHS, BUT NO INTERVENTION. LAST CARDIAC CATH WAS 06/[address] HAWKINS, AND WAS NORMAL HAD A NORMAL NUCLEAR STRESS TESTE 07/23/[address] URIARTE. DOES NOT SEE A SENIOR MILITARY ANALYST NORMALLY PT CONTINUES TO SMOKE UP TO 1 PPD WENT TO [facility] TODAY FOR THIS PROBLEM, NO REPORT CALLED FROM THERE PT LATER REPORTS THAT SHE WAS GIVEN 4 BABY ASPIRIN THERE, AND HAD NEGATIVE COVID TEST THERE. STATES THEY TOLD HER TO COME HERE PCP: [facility], TO START SEEING DR. LEPE, SINCE DR. NAVARRETE RECENTLY LEFT THE PRACTICE. Allergies and Home Medications Allergies Coded Allergies: Penicillins (Verified Allergy, Unknown, 06/29/14) fluoxetine HCl (Verified Allergy, Unknown, 06/29/14) Patient Home Medication List Home Medication List Reviewed: Yes Albuterol Sulfate (Proair Hfa) 8.5 Gm Hfa.aer.ad, 2 PUFF IH Q4H PRN for SHORTNESS OF BREATH, (Reported) Entered as Reported by: BAN BRYANT on 02/15/16 09 Budesonide (Pulmicort Flexhaler) 180 Mcg Aer.pow.ba, 180 MCG IH BID Prescribed by: ASHLEY TOUSSAINT on 08/08/212019 Glycopyrrolate/Formoterol Fum (Bevespi Aerosphere Inhaler) 10.7 Gm Hfa.aer.ad, 2 PUFF IH BID, (Reported) Entered as Reported by: MARQUITA DIAL on 07/11/17 123 Hydrocodone/Acetaminophen (Lorcet Plus 7.5-325 mg Tablet) 1 Each Tablet, 1-2 TAB PO Q4H PRN for PAIN Prescribed by: JOANNA VAZQUEZ on 07/15/17 09 Ipratropium Daviston (Ipratropium Daviston) 0.2 Mg/1 Ml Solution, 0.2 MG IH BID, (Reported) Entered as Reported by: MARQUITA DIAL on 07/11/17 123 Jewett Carbonate (Jewett Carbonate ER) 450 Mg Tab, 450 MG PO BID, (Reported) Entered as Reported by: MARQUITA DIAL on 07/11/17 123 Methylprednisolone (Medrol) 4 Mg Tab.ds.pk, 4 MG PO UD Prescribed by: ASHLEY TOUSSAINT on 08/08/212015 Nitrofurantoin Monohyd/M-Cryst (Macrobid 100 mg Capsule) 100 Mg Capsule, 1 CAP PO BID Prescribed by: JOANNA VAZQUEZ on 07/15/17944 Prazosin HCl (Prazosin HCl) 1 Mg Capsule, 1 MG PO HS, (Reported) Entered as Reported by: MARQUITA DIAL on 07/11/17 123 Sertraline HCl (Sertraline HCl) 50 Mg Tablet, 50 MG PO DAILY, (Reported) Entered as Reported by: MARQUITA DIAL on 07/11/171229 Tamsulosin HCl (Flomax) 0.4 Mg Cap, 1 CAP PO DAILY Prescribed by: JOANNA VAZQUEZ on 07/15/17 09 Review of Systems Review of Systems Constitutional: no symptoms reported; No chills, No diaphoresis, No fever EENTM: No Symptoms Reported Respiratory: See HPI, Cough, Shortness of Air Cardiovascular: See HPI, Chest Pain; Denies Edema, Denies Irregular Heart Rate, Denies Lightheadedness, Denies Palpitations, Denies Syncope Gastrointestinal: No Symptoms Reported Genitourinary: No Symptoms Reported Musculoskeletal: no symptoms reported Skin: no symptoms reported Psychiatric/Neurological: No Symptoms Reported Endocrine: No Symptoms Reported Hematologic/Lymphatic: No Symptoms Reported Past [id number] Hx Patient Social History Tobacco Use?: Yes (1 PPD) Tobacco type used: Cigarettes Substance use?: No Alcohol Use?: No Immunizations Up To Date Tetanus Booster (TDap): More than 5yrs Seasonal Allergies Seasonal Allergies: No Past Medical History Surgeries: Yes Bladder Surgery, Cardiac, Hysterectomy, Oophorectomy, Renal, Tubal Ligation Respiratory: Yes COPD Cardiac: Yes (NO MEDICATIONS) Coronary Artery Disease, High Cholesterol, Hypertension Neurological: Yes Headaches /Migraines Reproductive Disorders: Yes Female Reproductive Disorders: Menstrual Problems 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 HAWKINS--NORMAL -06/29/2014--COLONOSCOPY BY DR. BRAGA -02/20/2016--ROBOTIC ASSISTED TOTAL ABDOMINAL HYSTERECTOMY, BILATERAL SALPINGO-OOPHORECTOMY, LYSIS OF ADHESIONS, ANTERIOR COLPORRHAPHY FOR GENITAL PROLAPSE AND CYSTOCOELE--BY DR. ESTES -07/15/2017--LITHOTRIPSY BY DR. CONNOR -PT HAS HAD MULTIPLE PROCEDURES FOR KIDNEY STONES--BASKET REMOVALS, LITHOTRIPSY, AND HAS HAD OPEN LEFT KIDNEY REPAIR DUE TO "SCAR TISSUE" PER PT. 07/23/2018--NUCLEAR STRESS TEST BY DR. URIARTE: Conclusion: Pharmacological stress test was negative for ischemia. Normal LV function with no wall motion abnormalities. Normal myocardial perfusion imaging during rest and stress. Physical Exam Vital Signs Vital Signs - First Documented 08/08/21 08/08/21 18:25 20:54 Temp 36.6 Pulse 76 Resp 25 B/P (MAP) 160/110 (127) Pulse Ox 96 O2 Delivery Room Air Capillary Refill : Height, Weight, BMI Height: 5'8.00" Weight: 151lbs. 2.0oz. [id number]; 23.0 BMI Method:Stated General Appearance: WD/WN, Other (MILDLY DYSPNEIC ON ARRIVAL, BUT ABLE TO TALK IN FULL SENTENCES, STRONG ODOR OF CIGARETTES) HEENT: Other (XANTHELASTHMAS BILATERALLY) Neck: Normal Inspection, Non Tender, Supple Respiratory: Normal Breath Sounds, No Accessory Muscle Use, No Respiratory Distress, Other ( ABOVE; MILD TENDERNESS ACROSS LOWER RIBS ANTERIORLY--PALPATION REPRODUCES PAIN) Cardiovascular: Regular Rate, Rhythm, No Edema, No JVD, No Murmur, Normal Peripheral Pulses Gastrointestinal: Non Tender, Soft Extremity: Normal Capillary Refill, Normal Inspection, Normal Range of Motion, Non Tender, No Calf Tenderness, No Pedal Edema, Other (BOTH FEET ARE PINK AND WARM WITH 2+ PULSES BILATERALLY, WITH GOOD CAPILLARY REFILL) Neurologic/Psychiatric: Alert, Oriented x3, No Motor/Sensory Deficits, Normal Mood/Affect, snap attacher II-XII Norm as Tested Skin: Normal Color, Warm/Dry; No Rash Progress/Results/Core Measures Results/Orders Lab Results Laboratory Tests Test 08/08/21 18:30 08/08/21 18:51 Range/Units White Blood Count 9.0 4.3-11.0 10^3/uL Red Blood Count 4.83 3.80-5.11 10^6/uL Hemoglobin 15.9 11.5-16.0 g/dL Hematocrit 47 35-52 % Mean Corpuscular Volume 98 80-99 fL Mean Corpuscular Hemoglobin 33 25-34 pg Mean Corpuscular Hemoglobin Concent 34 32-36 g/dL Red Cell Distribution Width 12.8 10.0-14.5 % Platelet Count 191 130-400 10^3/uL Mean Platelet Volume 10.4 9.0-12.2 fL Immature Granulocyte % (Auto) 0 % Neutrophils (%) (Auto) 44 42-75 % Lymphocytes (%) (Auto) 37 12-44 % Monocytes (%) (Auto) 6 0-12 % Eosinophils (%) (Auto) 11 H 0-10 % Basophils (%) (Auto) 1 0-10 % Neutrophils # (Auto) 4.0 1.8-7.8 10^3/uL Lymphocytes # (Auto) 3.4 1.0-4.0 10^3/uL Monocytes # (Auto) 0.5 0.0-1.0 10^3/uL Eosinophils # (Auto) 1.0 H 0.0-0.3 10^3/uL Basophils # (Auto) 0.1 0.0-0.1 10^3/uL Immature Granulocyte # (Auto) 0.0 0.0-0.1 10^3/uL Erythrocyte Sedimentation Rate 6 0-30 MM/HR Prothrombin Time 12.9 12.2-14.7 SEC INR Comment 0.9 0.8-1.4 Activated Partial Thromboplast Time 30 24-35 SEC D-Dimer < 0.27 0.00-0.49 UG/ML Sodium Level 138 135-145 MMOL/L Potassium Level 3.8 3.6-5.0 MMOL/L Chloride Level 105 98-107 MMOL/L Carbon Dioxide Level 24 21-32 MMOL/L Anion Gap 9 5-14 MMOL/L Blood Urea Nitrogen 6 L 7-18 MG/DL Creatinine 0.90 0.60-1.30 MG/DL Estimat Glomerular Filtration Rate 72 BUN/Creatinine Ratio 7 Glucose Level 106 H 70-105 MG/DL Calcium Level 10.0 8.5-10.1 MG/DL Corrected Calcium 9.8 8.5-10.1 MG/DL Magnesium Level 1.9 1.6-2.4 MG/DL Total Bilirubin 0.5 0.1-1.0 MG/DL Aspartate Amino Transf (AST/SGOT) 19 5-34 U/L Alanine Aminotransferase (ALT/SGPT) 17 0-55 U/L Alkaline Phosphatase 116 40-136 U/L Total Creatine Kinase 96 29-168 U/L Creatine Kinase MB 2.0 <6.6 NG/ML Myoglobin 74.3 10.0-92.0 NG/ML Troponin I < 0.028 <0.028 NG/ML C-Reactive Protein High Sensitivity 0.40 0.00-0.50 MG/DL B-Type Natriuretic Peptide < 10.0 <100.0 PG/ML Total Protein 7.6 6.4-8.2 GM/DL Albumin 4.3 3.2-4.5 GM/DL Amylase Level 46 25-125 U/L Lipase 20 8-78 U/L Procalcitonin 0.02 <0.10 NG/ML Influenza Type A (RT-PCR) Not Detected Not Detecte Influenza Type B (RT-PCR) Not Detected Not Detecte SARS-CoV-2 RNA (RT-PCR) Not Detected Not Detecte My Orders Orders - ASHLEY TOUSSAINT DO Ed Iv/Invasive Line Start (08/08/21 18:31) Ekg Tracing (08/08/21 18:31) O2 (08/08/21 18:31) Monitor-Rhythm Ecg Trace Only (08/08/21 18:31) Cbc With Automated Diff (08/08/21 18:31) Magnesium (08/08/21 18:31) Chest 1 View, Ap/Pa Only (08/08/21 18:31) Ekg Tracing (08/08/21 18:31) Comprehensive Metabolic Panel (08/08/21 18:31) Myoglobin Serum (08/08/21 18:31) Protime With Inr (08/08/21 18:31) Partial Thromboplastin Time (08/08/21 18:31) O2 (08/08/21 18:31) Ed Iv/Invasive Line Start (08/08/21 18:31) Creatine Kinase (08/08/21 18:31) Creatine Kinase Mb (08/08/21 18:31) Lipase (08/08/21 18:31) Amylase (08/08/21 18:31) Bnp Starr (08/08/21 18:31) Fibrin Degradation Products (08/08/21 18:31) Troponin I Starr (08/08/21 18:31) Nitroglycerin 0.4 Mg Btl 25's (Nitrostat (08/08/21 18:45) Aspirin Chewable Tablet (Baby Aspirin Ch (08/08/21 18:45) Procalcitonin (Pct) (08/08/21 18:31) Hs C Reactive Protein (08/08/21 18:31) Erythrocyte Sedimentation Rate (08/08/21 18:31) Covid 19 Inhouse Test (08/08/21 18:31) Influenza A And B By Pcr (08/08/21 18:31) Isolation Central Supply Req (08/08/21 18:31) Ct Angio Chest W (08/08/21 19:32) Iohexol Injection (Omnipaque 350 Mg/Ml 1 (08/08/21 19:45) Ns (Ivpb) (Sodium Chloride 0.9% Ivpb Bag (08/08/21 19:45) Received Contrast (Hold Metformin- Contr (08/08/21 19:45) Methylprednisolone Sod Succ (Solu-Medrol (08/08/21 20:30) Medications Given in ED Current Medications Medications Dose Ordered Sig/Pietro Route Start Time Stop Time Status Last Admin Dose Admin Iohexol 100 ml ONCE ONCE IV 08/08/21 19:45 08/08/21 19:46 DC 08/08/21 19:48 77 ML Methylprednisolone Sodium Succinate 125 mg ONCE ONCE IVP 08/08/21 20:30 08/08/21 20:31 DC 08/08/21 20:39 125 MG Nitroglycerin 0.4 mg UD PRN SL 08/08/21 18:45 08/08/21 19:03 0.4 MG Sodium Chloride 100 ml ONCE ONCE IV 08/08/21 19:45 08/08/21 19:46 DC 08/08/21 19:48 70 ML Vital Signs/I&O 08/08/21 08/08/21 18:25 20:54 Temp 36.6 36.6 Pulse 76 84 Resp 25 21 B/P (MAP) 160/110 (127) 144/92 Pulse Ox 96 O2 Delivery Room Air Progress Progress Note : Progress Note PLACED IN ISOLATION ROOM PPE WORN COVID AND FLU TESTING DONE ASPIRIN HELD PT REPORTS THAT SHE WAS GIVEN 4 BABY ASPIRIN AT [facility] PRIOR TO ARRIVAL HERE. NO COUGH NO DYSPNEA AT REST NO HYPOXIA NO FURTHER COMPLAINTS OF CHEST PAIN AT ANY TIME DURING ER STAY Initial ECG Impression Date: Aug 08, 2021 Initial ECG Impression Time: 18:25 Initial ECG Rate: 67 Initial ECG Rhythm: Normal Sinus Diagnostic Imaging Comments CXR--PER RADIOLOGIST REPORT AT 1908 FINDINGS: Heart size and pulmonary vascularity are within normal limits, and the lungs are clear, bilaterally. IMPRESSION: Unremarkable chest. CT CHEST ANGIOGRAM--PER RADIOLOGIST REPORT AT 2013 FINDINGS: There is good opacification of pulmonary arteries. No intraluminal filling defect is identified to indicate embolism. Thoracic aorta is of normal caliber with mild atherosclerotic disease. There is rather extensive background centrilobular emphysema in both lungs with an upper lobe predominance. Occasional areas of linear scarring are also noted however there is no consolidation, pneumothorax or pleural fluid. No significant mediastinal hematoma or pathologic adenopathy is identified. Images of the upper abdomen reveal multiple bilateral renal calculi with possible cyst and/or scarring in the lateral aspect of the left kidney. IMPRESSION: 1. No CTA evidence of pulmonary embolism or other acute abnormality in the thorax. 2. There is extensive background emphysema throughout both lungs and note is made of bilateral nephrolithiasis. Reviewed: Reviewed by Me Departure Impression Primary Impression: COPD exacerbation Additional Impression: Chest wall pain Disposition: HOME, SELF-CARE Condition: Improved Departure-Patient Inst. Decision time for Depature: 20:15 Referrals: WAI NAVARRETE MD (PCP/Family) Primary Care Physician Patient Instructions: Chronic Obstructive Pulmonary Disease (COPD) (DC), How to Use Your Metered Dose Inhaler (Adults), Quitting Smoking ED Add. Discharge Instructions: USE YOUR INHALER WITH A SPACER AT ALL TIMES NO SMOKING FOLLOW UP WITH SENIOR MILITARY ANALYST DIRECTED BY YOUR REGULAR DR. FOLLOW UP WITH YOUR REGULAR DR IN A FEW DAYS FOR FURTHER CARE RETURN TO ER IF WORSE Scripts Budesonide (Pulmicort Flexhaler) 180 Mcg Aer.pow.ba 180 MCG IH BID, #1 EACH Prov: ASHLEY TOUSSAINT DO 08/08/21 Methylprednisolone (Medrol) 4 Mg Tab.ds.pk 4 MG PO UD for 6 Days, #21 PKG PER DOSE PACK INSTRUCTIONS Prov: ASHLEY TOUSSAINT DO 08/08/21 ASHLEY TOUSSAINT DO Aug 08, 2021 18:42
[2021-08-08 18:43] LABS: BASOPHILS # (AUTO) 0.1 10^3/uL (0.0-0.1); BASOPHILS % (AUTO) 1 % (0-10); EOSINOPHILS % (AUTO) 11 % (0-10); HEMATOCRIT 47 % (35-52); HEMOGLOBIN 15.9 g/dL (11.5-16.0); LYMPHOCYTES # (AUTO) 3.4 10^3/uL (1.0-4.0); LYMPHOCYTES % (AUTO) 37 % (12-44); MEAN CORPUSCULAR HEMOGLOBIN 33 pg (25-34); MEAN CORPUSCULAR HGB CONC 34 g/dL (32-36); MEAN CORPUSCULAR VOLUME 98 fL (80-99); MEAN PLATELET VOLUME 10.4 fL (9.0-12.2); MONOCYTES # (AUTO) 0.5 10^3/uL (0.0-1.0); MONOCYTES % (AUTO) 6 % (0-12); NEUTROPHILS % (AUTO) 44 % (42-75); PLATELET COUNT 191 10^3/uL (130-400)
[2021-08-08] MEDS ORDERED: ASPIRIN 81 MG CHEW (CHILDREN'S ASA) PO ONE (18:45)
[2021-08-08] MEDS ORDERED: NITROGLYCERIN 0.4 MG SL TABS BTL 25'S SL PRN (18:45)
[2021-08-08 18:54] LABS: INR 0.9 (0.8-1.4); PROTHROMBIN TIME PATIENT 12.9 SEC (12.2-14.7)
--- NOTE | 2021-08-08 19:04 | Diagnostic Imaging Report ---
INDICATION: Chest pain. EXAMINATION: AP view of the chest was obtained. COMPARISON: Study of 06/30/2012. FINDINGS: Heart size and pulmonary vascularity are within normal limits, and the lungs are clear, bilaterally. IMPRESSION: Unremarkable chest. Dictated by: Dictated on workstation # [id number]
[2021-08-08 19:16] LABS: ALBUMIN 4.3 GM/DL (3.2-4.5); BILIRUBIN,TOTAL 0.5 MG/DL (0.1-1.0); CREATININE SERUM 0.9 MG/DL (0.60-1.30); MAGNESIUM 1.9 MG/DL (1.6-2.4); POTASSIUM 3.8 MMOL/L (3.6-5.0); TOTAL PROTEIN 7.6 GM/DL (6.4-8.2)
[2021-08-08] MEDS ORDERED: NS 100 ML (IVPB) BAG IV ONE (19:45)
[2021-08-08] MEDS ORDERED: HOLD METFORMIN - RECEIVED CONTRAST 20 ML VIAL IV SCH (19:45)
[2021-08-08] MEDS ORDERED: IOHEXOL 350 MG/ML 100 ML (OMNIPAQUE 350) VIAL IV ONE (19:45)
--- NOTE | 2021-08-08 20:05 | Diagnostic Imaging Report ---
PROCEDURE: CT angiography of the chest with contrast. TECHNIQUE: Multiple contiguous axial images were obtained through the chest after uneventful bolus administration of intravenous contrast. 3D reconstructed CTA MIP acquisitions were also performed. Auto Exposure Controls were utilized during the CT exam to meet ALARA standards for radiation dose reduction. INDICATION: High probability for pulmonary embolism in patient with chest pain. FINDINGS: There is good opacification of pulmonary arteries. No intraluminal filling defect is identified to indicate embolism. Thoracic aorta is of normal caliber with mild atherosclerotic disease. There is rather extensive background centrilobular emphysema in both lungs with an upper lobe predominance. Occasional areas of linear scarring are also noted however there is no consolidation, pneumothorax or pleural fluid. No significant mediastinal hematoma or pathologic adenopathy is identified. Images of the upper abdomen reveal multiple bilateral renal calculi with possible cyst and/or scarring in the lateral aspect of the left kidney. IMPRESSION: 1. No CTA evidence of pulmonary embolism or other acute abnormality in the thorax. 2. There is extensive background emphysema throughout both lungs and note is made of bilateral nephrolithiasis. Dictated by: Dictated on workstation # [id number]
[2021-08-08] MEDS ORDERED: METH4TAB PO (20:16)
[2021-08-08] MEDS ORDERED: BUDE180A IH (20:20)
[2021-08-08] MEDS ORDERED: methylPREDNISolone 125 MG (Solu-MEDROL) VIAL IVP ONE (20:30)
[2021-08-08 20:54] VITALS: BP 144/92
== END 2021-08-08 20:54 | disposition home or self-care (01) ==
LOC: EDUNIT# 18:18 → ER 18:19
DX: J44.1 Chronic obstructive pulmonary disease with (acute) exacerbation (principal); R07.89 Other chest pain; F17.210 Nicotine dependence, cigarettes, uncomplicated; Z20.822 Contact with and (suspected) exposure to COVID-19
CPT/HCPCS: 36415; 71045; 71275; 80053; 82150; 82550; 82553; 83690; 83735; 83874; 83880; 84145; 84484; 85025; 85379; 85610; 85652; 85730; 86141; 87636; 93005; 93041

== ENCOUNTER 2021-08-28 09:40 | Observation (INO) | payer MEDICARE, MEDICAID ==
[~2021-08-28] VITALS: Ht 172.7 cm; Wt 69.4 kg
[~2021-08-28 09:40] MED LIST changes: +BUDE180A IH; +METH4TAB PO
[2021-08-28 09:55] VITALS: BP 169/93
--- NOTE | 2021-08-28 09:55 | ED Dyspnea ---
General Stated Complaint: SOA Source of Information: Patient, EMS Exam Limitations: No Limitations History of Present Illness Date Seen by Provider: Aug 28, 2021 Time Seen by Provider: 09:40 Initial Comments Patient is a 61-year-old female who presents to the emergency department by EMS chief complaint of worsening shortness of breath over 2 weeks with chest tightness/pain over 2 weeks. Patient states that she has a history of COPD. She uses breathing treatments at home. She does not wear oxygen. EMS reports they found her sitting in her chair satting 90% with increased work of breathing. They moved her to the ambulance her oxygen saturations dropped down to 84%. Patient was placed on CPAP at 100%. She endorses clear sputum with her cough. No fevers or chills. No sick contacts. She states that she continues to smoke 1 to 2 cigarettes daily. No history of coronary artery disease. She has had previous angiography. No leg swelling or calf pain or history of clot. Complains of slight runny nose, no sore throat. She is COVID vaccinated with a booster. All other review of systems reviewed and negative except as stated. Timing/Duration: Other Severity: Severe Activities at Onset: None Prior Episodes/Possible Cause: Frequent Episodes, Smoke Exposure Modifying Factors: Improves With Albuterol Inhaler, Improves With Coughing Associated Symptoms: Cough, Weakness, Wheezing Allergies and Home Medications Allergies Coded Allergies: Penicillins (Verified Allergy, Unknown, 06/29/14) fluoxetine HCl (Verified Allergy, Unknown, 06/29/14) Patient Home Medication List Home Medication List Reviewed: Yes Albuterol Sulfate (Proair Hfa) 8.5 Gm Hfa.aer.ad, 2 PUFF IH Q4H PRN for SHORTNESS OF BREATH, (Reported) Entered as Reported by: BAN BRYANT on 02/15/16 0905 Budesonide (Pulmicort Flexhaler) 180 Mcg Aer.pow.ba, 180 MCG IH BID Prescribed by: ASHLEY TOUSSAINT on 08/08/212019 Glycopyrrolate/Formoterol Fum (Bevespi Aerosphere Inhaler) 10.7 Gm Hfa.aer.ad, 2 PUFF IH BID, (Reported) Entered as Reported by: MARQUITA DIAL on 07/11/17 1230 Hydrocodone/Acetaminophen (Lorcet Plus 7.5-325 mg Tablet) 1 Each Tablet, 1-2 TAB PO Q4H PRN for PAIN Prescribed by: JOANNA VAZQUEZ on 07/15/17944 Ipratropium [place] (Ipratropium [place]) 0.2 Mg/1 Ml Solution, 0.2 MG IH BID, (Reported) Entered as Reported by: MARQUITA DIAL on 07/11/17 1230 Glendo Carbonate (Glendo Carbonate ER) 450 Mg Tab, 450 MG PO BID, (Reported) Entered as Reported by: MARQUITA DIAL on 07/11/17 1230 Methylprednisolone (Medrol) 4 Mg Tab.ds.pk, 4 MG PO UD Prescribed by: ASHLEY TOUSSAINT on 08/08/212015 Nitrofurantoin Monohyd/M-Cryst (Macrobid 100 mg Capsule) 100 Mg Capsule, 1 CAP PO BID Prescribed by: JOANNA VAZQUEZ on 07/15/17944 Prazosin HCl (Prazosin HCl) 1 Mg Capsule, 1 MG PO HS, (Reported) Entered as Reported by: MARQUITA DIAL on 07/11/17 123 Sertraline HCl (Sertraline HCl) 50 Mg Tablet, 50 MG PO DAILY, (Reported) Entered as Reported by: MARQUITA DIAL on 07/11/17 123 Tamsulosin HCl (Flomax) 0.4 Mg Cap, 1 CAP PO DAILY Prescribed by: JOANNA VAZQUEZ on 07/15/17944 Review of Systems Review of Systems Constitutional: see HPI EENTM: other (runny nose); No throat pain Respiratory: cough, phlegm (clear), short of breath, wheezing Cardiovascular: chest pain Gastrointestinal: no symptoms reported Genitourinary: no symptoms reported : No Musculoskeletal: no symptoms reported Skin: no symptoms reported All Other Systems Reviewed Negative Unless Noted: Yes Past Bklbmff-Pesejg-Hxtzuv Hx Immunizations Up To Date Tetanus Booster (TDap): More than 5yrs First/Initial COVID19 Vaccinat: 09/04/20 Seasonal Allergies Seasonal Allergies: No Past Medical History Surgery/Hospitalization HX: COPD, INSOMNIA Surgeries: Yes Bladder Surgery, Cardiac, Hysterectomy, Oophorectomy, Renal, Tubal Ligation Respiratory: Yes COPD Cardiac: Yes (NO MEDICATIONS) Coronary Artery Disease, High Cholesterol, Hypertension Neurological: Yes Headaches /Migraines Reproductive Disorders: Yes Female Reproductive Disorders: Menstrual Problems [employer] History: Hysterectomy, Menopausal Sexually Transmitted Disease: No HIV/AIDS: No Genitourinary: Yes Kidney Stones, UTI-Chronic Gastrointestinal: Yes Polyps Musculoskeletal: No Endocrine: No HEENT: No Loss of Vision: Bilateral Hearing Impairment: Denies Cancer: No Psychosocial: Yes Anxiety, Suicide Attempts, Bipolar, Depression Adverse Reaction/Blood Tranf: No (N/A) Family Medical History SOCIAL HISTORY: -SMOKES 1 PPD -ETOH--DENIES USE -DRUGS-DENIES USE PAST SURGICAL HISTORY: -BILATERAL TUBAL LIGATION TWICE -06/2012-CARDIAC CATH BY DR. HAWKINS--NORMAL -06/29/2014--COLONOSCOPY BY DR. BRAGA -02/20/2016--ROBOTIC ASSISTED TOTAL ABDOMINAL HYSTERECTOMY, BILATERAL SALPINGO-OOPHORECTOMY, LYSIS OF ADHESIONS, ANTERIOR COLPORRHAPHY FOR GENITAL PROLAPSE AND CYSTOCOELE--BY DR. ESTES -07/15/2017--LITHOTRIPSY BY DR. CONNOR -PT HAS HAD MULTIPLE PROCEDURES FOR KIDNEY STONES--BASKET REMOVALS, LITHOTRIPSY, AND HAS HAD OPEN LEFT KIDNEY REPAIR DUE TO "SCAR TISSUE" PER PT. 07/23/2018--NUCLEAR STRESS TEST BY DR. URIARTE: Conclusion: Pharmacological stress test was negative for ischemia. Normal LV function with no wall motion abnormalities. Normal myocardial perfusion imaging during rest and stress. Physical Exam Vital Signs Vital Signs - First Documented 08/28/21 09:40 Temp 36.2 Pulse 78 Resp 36 B/P (MAP) 169/93 (118) Pulse Ox 100 O2 Delivery NIV CPAP O2 Flow Rate 100.00 Capillary Refill : Height, Weight, BMI Height: 5'8.00" Weight: 151lbs. 2.0oz. [id number]; 22.00 BMI Method:Stated General Appearance: No Apparent Distress, WD/WN HEENT: PERRL/EOMI Neck: Normal Inspection Respiratory: Chest Non Tender, No Accessory Muscle Use, Other (increased respi rate; no distress; poor air movement throughout both lungs with tight squeaky expiratory wheezes everywhere) Cardiovascular: Regular Rate, Rhythm, No Edema Gastrointestinal: Non Tender, Soft Extremity: Normal Capillary Refill, Normal Inspection, Normal Range of Motion, No Calf Tenderness, No Pedal Edema Neurologic/Psychiatric: Alert, Oriented x3, No Motor/Sensory Deficits, Normal Mood/Affect Skin: Normal Color, Warm/Dry Focused Exam Lactate Level 08/28/21 09:50: Lactic Acid Level 0.76 Lactic Acid Level Laboratory Tests Test 08/28/21 09:50 Lactic Acid Level 0.76 MMOL/L (0.50-2.00) Progress/Results/Core Measures Results/Orders Lab Results Laboratory Tests Test 08/28/21 09:50 08/28/21 10:21 Range/Units White Blood Count 6.7 4.3-11.0 10^3/uL Red Blood Count 4.68 3.80-5.11 10^6/uL Hemoglobin 15.6 11.5-16.0 g/dL Hematocrit 46 35-52 % Mean Corpuscular Volume 99 80-99 fL Mean Corpuscular Hemoglobin 33 25-34 pg Mean Corpuscular Hemoglobin Concent 34 32-36 g/dL Red Cell Distribution Width 12.8 10.0-14.5 % Platelet Count 179 130-400 10^3/uL Mean Platelet Volume 10.4 9.0-12.2 fL Immature Granulocyte % (Auto) 0 % Neutrophils (%) (Auto) 47 42-75 % Lymphocytes (%) (Auto) 28 12-44 % Monocytes (%) (Auto) 8 0-12 % Eosinophils (%) (Auto) 17 H 0-10 % Basophils (%) (Auto) 1 0-10 % Neutrophils # (Auto) 3.1 1.8-7.8 10^3/uL Lymphocytes # (Auto) 1.9 1.0-4.0 10^3/uL Monocytes # (Auto) 0.5 0.0-1.0 10^3/uL Eosinophils # (Auto) 1.1 H 0.0-0.3 10^3/uL Basophils # (Auto) 0.1 0.0-0.1 10^3/uL Immature Granulocyte # (Auto) 0.0 0.0-0.1 10^3/uL Neutrophils % (Manual) 48 % Lymphocytes % (Manual) 25 % Monocytes % (Manual) 10 % Eosinophils % (Manual) 17 % Blood Morphology Comment NORMAL Sodium Level 142 135-145 MMOL/L Potassium Level 4.1 3.6-5.0 MMOL/L Chloride Level 108 H 98-107 MMOL/L Carbon Dioxide Level 25 21-32 MMOL/L Anion Gap 9 5-14 MMOL/L Blood Urea Nitrogen 6 L 7-18 MG/DL Creatinine 0.78 0.60-1.30 MG/DL Estimat Glomerular Filtration Rate 85 BUN/Creatinine Ratio 8 Glucose Level 97 70-105 MG/DL Lactic Acid Level 0.76 0.50-2.00 MMOL/L Calcium Level 9.8 8.5-10.1 MG/DL Troponin I < 0.028 <0.028 NG/ML Blood Gas Puncture Site LT RAD Blood Gas Patient Temperature 35.5 Arterial Blood pH 7.35 L 7.37-7.43 Arterial Blood Partial Pressure CO2 42 35-45 MMHG Arterial Blood Partial Pressure O2 89 79-93 MMHG Arterial Blood HCO3 23 23-27 MMOL/L Arterial Blood Total CO2 24.4 21.0-31.0 MMOL/L Arterial Blood Oxygen Saturation 98 94-100 % Arterial Blood Base Excess -2.0 -2.5-2.5 MMOL/L Dom Test YES-POS Blood Gas Ventilator Setting NO Blood Gas Inspired Oxygen 40% My Orders Orders - GWEN HSU MD Ed Iv/Invasive Line Start (08/28/21 09:47) Chest 1 View, Ap/Pa Only (08/28/21 09:47) Ekg Tracing (08/28/21 09:47) Cbc With Automated Diff (08/28/21 09:47) Basic Metabolic Panel (08/28/21 09:47) Troponin I Lizy (08/28/21 09:47) Methylprednisolone Sod Succ (Solu-Medrol (08/28/21 10:00) Albuterol Pre-Mix Nebs (Rt) (Proventil (08/28/21 10:00) Ipratropium 0.02% Neb Solution (Atrovent (08/28/21 10:00) Svn Small Volume Nebulizer (08/28/21 09:47) Svn Small Volume Nebulizer (08/28/21 09:47) Communication For Respiratory (08/28/21 09:47) Blood Culture (08/28/21 09:47) Lactic Acid Analyzer (08/28/21 09:47) Ns Iv 1000 Ml (Sodium Chloride 0.9%) (08/28/21 10:00) Manual Differential (08/28/21 09:50) Arterial Blood Gas (08/28/21 10:16) Arterial Blood Draw - Obtain (08/28/21 ) Acetaminophen Tablet (Tylenol Tablet) (08/28/21 12:15) Medications Given in ED Current Medications Medications Dose Ordered Sig/Pietro Route Start Time Stop Time Status Last Admin Dose Admin Acetaminophen 1,000 mg ONCE ONCE PO 08/28/21 12:15 08/28/21 12:16 DC 08/28/21 12:39 1,000 MG Albuterol Sulfate 2.5 mg ONCE ONCE INH 08/28/21 10:00 08/28/21 10:01 DC 08/28/21 09:54 2.5 MG Ipratropium [place] 0.5 mg ONCE ONCE IH 08/28/21 10:00 08/28/21 10:01 DC 08/28/21 09:54 0.5 MG Methylprednisolone Sodium Succinate 125 mg ONCE ONCE IVP 08/28/21 10:00 08/28/21 10:01 DC 08/28/21 10:10 125 MG Vital Signs/I&O 08/28/21 08/28/21 08/28/21 08/28/21 09:40 09:50 09:55 10:34 Temp 36.2 36.2 Pulse 78 80 80 Resp 36 27 27 B/P (MAP) 169/93 (118) 169/93 Pulse Ox 100 99 99 O2 Delivery NIV CPAP NIV Bilevel O2 Flow Rate 100.00 40.00 40.00 100.00 08/28/21 08/28/21 08/28/21 10:53 12:11 12:35 Pulse Ox 96 96 O2 Delivery Nasal Cannula Room Air Nasal Cannula O2 Flow Rate 3.00 3.00 Progress Progress Note #1: Time: 09:54 Progress Note Patient transitioned to Bipap at 12/6 and down from 100% to 70%. She seems to be tolerating well. will check blood gas Progress Note #2: Time: 10:49 Progress Note Patient reexamined on 40% FiO2, breathing much better, all wheezes have resolved. We will try to pull her off BiPAP onto nasal cannula and see if she can maintain and then try to wean her off oxygen. Progress Note #3: Time: 12:12 Progress Note rechecked again - down to 2L satting 96%. Turned O2 off and will monitor. Has a tiny exp wheeze Left upper lobe. No increased work of breathing or distress. C/o headache at this time. Will give some Tylenol. Labs/ABG and CXR, EKG and troponin all negative. Suspect acute exacerbation of COPD. If she maintains above 92% off oxygen, will send her home with refills for her nebulizer and a steroid taper. To follow up with her PCP. Progress Note #4: Time: 12:43 Progress Note Patient dropped down to 87% on room air once I weaned her oxygen off. Put her back up to 2 and she hung out at 90%. Bumped her up to 3 and she is still 90 to 91%. Started wheezing again. Would like to stay overnight for observation. Case discussed with Dr. Bradley who accepts the patient for admission. He will put in que'd orders. Initial ECG Impression Date: Aug 28, 2021 Initial ECG Impression Time: 09:47 Initial ECG Rate: 84 Initial ECG Rhythm: Normal Sinus Initial ECG Intervals AK 146 QRS 101 QTc 431 Comment no ectopy; poor R wave progression over the precordium; no ST segment change Critical Care Note Critical Care Start Time: 09:40 Stop Time: 12:44 Total Time (minutes) 1 hour critical care time in the evaluation and management of this patient with an acute exacerbation of COPD and hypoxia. Time includes initial amount of evaluation and management of hypoxia with oxygen supplementation, fluids, review and interpretation of labs, EKG, chest x-ray. Review of the medical record, discussion with admitting provider. Departure Communication (Admissions) Time/Spoke to Admitting Phy: 12:[address] Bradley Impression Primary Impression: Acute exacerbation of chronic obstructive pulmonary disease (COPD) Additional Impressions: Hypoxia Tobacco use Disposition: ADMITTED INPATIENT Condition: Stable Admissions Decision to Admit Reason: Admit from ER (General) Decision to Admit/Date: Aug 28, 2021 Time/Decision to Admit Time: 12:45 GWEN HSU MD Aug 28, 2021 09:55
[2021-08-28] MEDS ORDERED: NS IV 1000 ML 1,000 ML IV SCH (10:00)
[2021-08-28] MEDS ORDERED: methylPREDNISolone 125 MG (Solu-MEDROL) VIAL IVP ONE (10:00)
[2021-08-28] MEDS ORDERED: RT-IPRATROPIUM (ATROVENT) 0.5MG/2.5ML AMP IH ONE (10:00)
[2021-08-28] MEDS ORDERED: RT-ALBUTEROL SULF 2.5 MG/3 ML PRE-MIX VIAL INH ONE (10:00)
[2021-08-28 10:11] LABS: BASOPHILS # (AUTO) 0.1 10^3/uL (0.0-0.1); BASOPHILS % (AUTO) 1 % (0-10); EOSINOPHILS # (AUTO) 1.1 10^3/uL (0.0-0.3); EOSINOPHILS % (AUTO) 17 % (0-10); HEMATOCRIT 46 % (35-52); HEMOGLOBIN 15.6 g/dL (11.5-16.0); LYMPHOCYTES # (AUTO) 1.9 10^3/uL (1.0-4.0); LYMPHOCYTES % (AUTO) 28 % (12-44); MEAN CORPUSCULAR HEMOGLOBIN 33 pg (25-34); MEAN CORPUSCULAR HGB CONC 34 g/dL (32-36); MEAN CORPUSCULAR VOLUME 99 fL (80-99); MEAN PLATELET VOLUME 10.4 fL (9.0-12.2); MONOCYTES # (AUTO) 0.5 10^3/uL (0.0-1.0); MONOCYTES % (AUTO) 8 % (0-12); NEUTROPHILS # (AUTO) 3.1 10^3/uL (1.8-7.8); NEUTROPHILS % (AUTO) 47 % (42-75); PLATELET COUNT 179 10^3/uL (130-400); WHITE BLOOD COUNT 6.7 10^3/uL (4.3-11.0)
[2021-08-28 10:20] LABS: BUN/CREATININE RATIO 8; CALCIUM 9.8 MG/DL (8.5-10.1); CARBON DIOXIDE 25 MMOL/L (21-32); CHLORIDE 108 MMOL/L (98-107); CREATININE SERUM 0.78 MG/DL (0.60-1.30); GFR ESTIMATED 85; GLUCOSE 97 MG/DL (70-105); POTASSIUM 4.1 MMOL/L (3.6-5.0); SODIUM 142 MMOL/L (135-145)
--- NOTE | 2021-08-28 10:29 | Diagnostic Imaging Report ---
INDICATION: Shortness of breath. TECHNIQUE/COMPARISON: A frontal chest was obtained at 10:08 AM and compared to 08/08/2021. FINDINGS: The heart and mediastinal silhouette are normal. There is hyperinflation, compatible with COPD. There is no focal infiltrate, pneumothorax, or pleural fluid. IMPRESSION: COPD changes. No focal infiltrate. Dictated by: Dictated on workstation # [id number]
[2021-08-28 10:31] LABS: EOSINOPHILS % (MANUAL) 17 %; LYMPHOCYTES % (MANUAL) 25 %; MONOCYTES % (MANUAL) 10 %; NEUTROPHILS % (MANUAL) 48 %; RBC MORPH NORMAL
[2021-08-28 10:31] LABS: ABG OXYGEN SATURATION 98 % (94-100); ABG PCO2 42 MMHG (35-45); ABG PH 7.35 (7.37-7.43); ABG PO2 89 MMHG (79-93); ABG TCO2 24.4 MMOL/L (21.0-31.0)
[2021-08-28 10:33] LABS: ALLENS TEST YES-POS; INSPIRED O2 40%; PATIENT TEMP 35.5; VENTILATOR NO
[2021-08-28] MEDS ORDERED: ACETAMINOPHEN 500 MG TAB (TYLENOL) PO ONE (12:15)
[2021-08-28 14:55] VITALS: BP 152/74
[2021-08-28] MEDS ORDERED: diphenhydrAMINE 25 MG TAB (BENADRYL) PO PRN (15:00)
[2021-08-28] MEDS ORDERED: ONDANSETRON 4 MG/2 ML (SDV) Z0FRAN IV PRN (15:00)
[2021-08-28] MEDS ORDERED: ANTACID SUSP 30 ML UDC (MYLANTA) PO PRN (15:00)
[2021-08-28] MEDS ORDERED: ENOXAPARIN 40 MG/0.4 ML (LOVENOX) SYR SC SCH (15:00)
[2021-08-28] MEDS ORDERED: MELATONIN 3 MG TABLET PO PRN (15:00)
[2021-08-28] MEDS ORDERED: polyethylene glycoL POWDER 17 GM (MIRALAX) PACK PO PRN (15:00)
[2021-08-28] MEDS ORDERED: ONDANSETRON 4 MG (ZOFRAN) ORAL DISSOLVE TAB PO PRN (15:00)
[2021-08-28] MEDS ORDERED: ACETAMINOPHEN 325 MG TABLET PO PRN (15:00)
[2021-08-28 15:29] VITALS: BP 152/74
[2021-08-28] MEDS ORDERED: RT-ALBUTEROL/IPRATROPIUM 3 ML (DUONEB) VIAL INH PRN (15:45)
[2021-08-28 16:10] VITALS: BP 150/84
[2021-08-28] MEDS: methylPREDNISolone 125 MG (Solu-MEDROL) VIAL IVP SCH (16:51)
[2021-08-28] MEDS ORDERED: oxyCODONE/APAP 5/325MG (PERCOCET 5) TABLET PO PRN (17:45)
[2021-08-28] MEDS ORDERED: LIDOCAINE 2% VISCOUS 15 ML UDC PO NR (18:00)
[2021-08-28] MEDS ORDERED: ANTACID SUSP 30 ML UDC (MYLANTA) PO NR (18:00)
[2021-08-28] MEDS: LITHIUM CARB SR 450 MG (ESKALITH-CR) TAB PO SCH (18:22)
[2021-08-28 19:40] VITALS: BP 178/81
[2021-08-28] MEDS: rOPINIRole 0.25 MG (REQUIP) TAB PO SCH (20:06)
[2021-08-28] MEDS ORDERED: SERTRALINE 50 MG (ZOLOFT) TABLET PO SCH (21:00)
[2021-08-28 23:36] VITALS: BP 127/66
[2021-08-29] MEDS: methylPREDNISolone 125 MG (Solu-MEDROL) VIAL IVP SCH ×2 (00:17→06:20)
[2021-08-29] MEDS: RT-ALBUTEROL/IPRATROPIUM 3 ML (DUONEB) VIAL INH SCH ×2 (03:20→08:27)
[2021-08-29 03:58] VITALS: BP 125/70
[2021-08-29 05:51] LABS: POTASSIUM 4.4 MMOL/L (3.6-5.0)
[2021-08-29 05:52] LABS: CALCIUM 10.2 MG/DL (8.5-10.1)
[2021-08-29 05:56] LABS: CREATININE SERUM 0.72 MG/DL (0.60-1.30)
[2021-08-29] MEDS ORDERED: predniSONE 20 MG TAB PO NR (08:04)
[2021-08-29] MEDS: rOPINIRole 0.25 MG (REQUIP) TAB PO SCH (08:30)
[2021-08-29] MEDS: LITHIUM CARB SR 450 MG (ESKALITH-CR) TAB PO SCH (08:30)
[2021-08-29 08:47] VITALS: BP 140/66
[2021-08-29] MEDS ORDERED: PRED10TA22 PO (11:12)
[2021-08-29 11:37] VITALS: BP 157/78
[2021-08-29 14:04] VITALS: BP 157/78
--- NOTE | 2021-08-29 18:10 | Discharge Summary ---
Discharge Summary Hospital Course Problems/Dx: (1) Acute respiratory failure with hypoxia Status: Acute (2) Acute exacerbation of chronic obstructive pulmonary disease (COPD) Status: Acute (3) Tobacco use Status: Acute Hospital Course Date of Admission: Aug 28, 2021 at 12:46 Admission Diagnosis : Acute respiratory failure with hypoxia due to COPD ex acerbation Family Physician/Provider: Roxanne Zee Physician Date of Discharge: 08/29/21 Discharge Diagnosis: Acute respiratory failure with hypoxia due to COPD exacerbation Hospital Course: Genoveva Grove is a 61 year old female with PMH bipolar disorder, COPD, tobacco abuse, who presented with shortness of breath and was admitted with acute respiratory failure with hypoxia due to COPD exacerbation. She was treated with IV steroids and breathing treatments and her symptoms improved. She still required supplemental oxygen at the time of discharge. She likely has been c hronically hypoxia as evidenced by her clubbing. She was set up with home oxygen 3 L continuously and 4 L with activity. She needs to establish with a primary care physician and a referral was sent to Dr. Fonseca for follow up. She was discharged home in stable condition. She will complete a steroid taper as an outpatient. Labs and Pending Lab Test: Laboratory Tests 08/29/21 05:29: Sodium Level 139, Potassium Level 4.4, Chloride Level 108H, Carbon Dioxide Level 19L, Anion Gap 12, Blood Urea Nitrogen 9, Creatinine 0.72, Estimat Glomerular Filtration Rate 94, BUN/Creatinine Ratio 13, Glucose Level 129H, Calcium Level 10.2H Microbiology 08/28/21 Blood Culture - Preliminary, Resulted No growth Home Meds Active Prednisone 10 Mg Tab.ds.pk 10 Mg PO DAILY Take 6 tabs(60mg)daily,decrease by 1 tab(10MG)daily. Reported Prazosin HCl 1 Mg Capsule 1 Mg PO HS PRN Sertraline HCl 50 Mg Tablet 50 Mg PO 1200 [place] Carbonate ER ([place] Carbonate) 450 Mg Tab 450 Mg PO BID Proair Hfa (Albuterol Sulfate) 8.5 Gm Hfa.aer.ad 2 Puff IH Q4H PRN Assessment/Pt Instructions Take medications as prescribed. Establish with a primary care physician. Return with worsening shortness of breath or if you feel like you are getting worse. Discharge Planning: >30 minutes discharge planning Discharge Instructions Discharge Diet: No Restrictions Activity as Tolerated: Yes Discharge Physical Examination Vital Signs Vital Signs Date Time Temp Pulse Resp B/P (MAP) Pulse Ox O2 Delivery O2 Flow Rate FiO2 08/29/21 14:04 35.9 84 18 157/78 94 Nasal Cannula 3.00 08/28/21 15:29 32 General Appearance: No Apparent Distress, WD/WN Respiratory: Decreased Breath Sounds, Wheezing Cardiovascular: Regular Rate, Rhythm, No Murmur Gastrointestinal: Normal Bowel Sounds, Soft Extremity: No Pedal Edema, Other (clubbing) Skin: Normal Color, Warm/Dry Neurologic/Psychiatric: Alert, No Motor/Sensory Deficits Allergies: Coded Allergies: Penicillins (Verified Allergy, Unknown, 06/29/14) fluoxetine HCl (Verified Allergy, Unknown, 06/29/14) Copy Copies To 1: ALYSON FONSECA MD Discharge Summary Date of Admission Aug 28, 2021 at 12:46 Date of Discharge Aug 29, 2021 at 14:04 Discharge Date: Aug 29, 2021 Discharge Time: 14:04 Admission Diagnosis Acute respiratory failure with hypoxia due to COPD exacerbation Discharge Diagnosis (1) Acute exacerbation of chronic obstructive pulmonary disease (COPD) Status: Acute (2) Acute respiratory failure with hypoxia Status: Acute (3) Tobacco use Status: Acute TYRONE LEONARD MD Aug 29, 2021 18:09
[2021-08-30] MEDS ORDERED: predniSONE 20 MG TAB PO SCH (07:00)
== END 2021-08-29 14:04 | disposition home or self-care (01) ==
LOC: ER 09:40 → EDUNIT# 09:40 → 4TH 12:46
PROVIDERS: ADMIT Internal Medicine; ATTEND Internal Medicine
DX: J44.1 Chronic obstructive pulmonary disease with (acute) exacerbation (principal); J96.01 Acute respiratory failure with hypoxia; F17.210 Nicotine dependence, cigarettes, uncomplicated; F31.9 Bipolar disorder, unspecified; Z88.0 Allergy status to penicillin; Z88.8 Allergy status to other drugs, medicaments and biological substances
CPT/HCPCS: 36415; 36600; 71045; 80048; 82805; 83605; 84484; 85007; 85027; 87040; 93005; 94640; 94760; 94761; 96372; 96374; 96376; G0378

== ENCOUNTER → 2021-09-18 | Outpatient (CLI) | payer MEDICARE, MEDICAID ==
[~2021-09-18] MED LIST changes: +PRED10TA22 PO; +RT-ALBUTEROL SULF 2.5 MG/3 ML PRE-MIX VIAL INH ONE
== END ==
LOC: RT 10:14
PROVIDERS: ATTEND Internal Medicine Critical Care Medicine
DX: J44.9 Chronic obstructive pulmonary disease, unspecified (principal)
CPT/HCPCS: 94060; 94726; 94729

== ENCOUNTER → 2021-10-15 | Outpatient (CLI) | payer MEDICARE, MEDICAID ==
[~2021-10-15] MED LIST changes: -RT-ALBUTEROL SULF 2.5 MG/3 ML PRE-MIX VIAL INH ONE
--- NOTE | 2021-10-15 15:08 | Diagnostic Imaging Report ---
INDICATION: History of renal calculi. COMPARISON: 10/12/2019. FINDINGS: Two frontal radiographic views of the abdomen were obtained. The small bowel loops are nondistended. There is no large collection of free intraperitoneal air. Multiple extraosseous calcifications are seen projecting over the left renal shadow. There is also a small extraosseous calcification projecting over the midline pelvis; however, this was present on the previous exam dated 10/12/2019. No unexpected radiopaque foreign bodies are identified. IMPRESSION: 1. Probable multiple left-sided renal calculi. 2. Nonobstructed small bowel gas pattern. Dictated by: Dictated on workstation # [id number]
== END ==
LOC: RAD 14:33
PROVIDERS: ATTEND Urology
DX: N20.0 Calculus of kidney (principal)
CPT/HCPCS: 74018

== ENCOUNTER 2022-02-11 08:19 | Emergency (ER) | payer MEDICARE, MEDICAID ==
[~2022-02-11] VITALS: Ht 172.7 cm; Wt 65.7 kg
--- NOTE | 2022-02-11 08:56 | ED General ---
General Chief Complaint: Lower Extremity Stated Complaint: LEFT FOOT PAIN Nursing Triage Note: PT AMB TO RM 4. PT STATED THAT SHE MISSED A STEP LAST NIGHT WHILE PUTTING THE DOGS IN THE HOUSE AND HEARD A CRACK IN HER LEFT ANKLE AND FOOT. PT DENISES TAKING PAIN MEDICATIONS TODAY. Source of Information: Patient Exam Limitations: No Limitations (PATTI PEÑA MED STUDENT) History of Present Illness Date Seen by Provider: Feb 11, 2022 Time Seen by Provider: 08:45 Initial Comments Jaden Grove is a 61 yo female who presents for left foot pain. Pt has hx of COPD, cardiovascular disease and kidney stones. Pt reports she was letting her dogs out around 2100 last night and didn't see a step and tripped over it. She heard a crack and felt pain in her left foot. Pt reports the pain is localized to the lateral aspect of the left foot and is a 3/10 at baseline and 10/10 when she moves it. Pt reports moving her toes and weightbearing make the pain worse. She denies taking any OTC pain medications for the pain. She was able to ambulate into the ED today. Pt reports using cold pack on the foot last night with some relief. She has increased swelling to the lateral aspect of the left foot and ankle with bruising along the lateral foot. Vitals are stable and pt is on home oxygen. Timing/Duration: 12 Hours Severity: Moderate Modifying Factors: improves with Cold Therapy, improves with Immobilization; worse with Movement; improves with Rest Associated Systoms: Denies Symptoms (PATTI PEÑA MED STUDENT) Allergies and Home Medications Allergies Coded Allergies: Penicillins (Verified Allergy, Unknown, 06/29/14) fluoxetine HCl (Verified Allergy, Unknown, 06/29/14) Patient Home Medication List Home Medication List Reviewed: Yes (GWEN HSU MD) Albuterol Sulfate (Proair Hfa) 8.5 Gm Hfa.aer.ad, 2 PUFF IH Q4H PRN for SHORTNESS OF BREATH, (Reported) Entered as Reported by: BAN BRYANT on 02/15/16 0905 [place] Carbonate ([place] Carbonate ER) 450 Mg Tab, 450 MG PO BID, (Reported) Entered as Reported by: MARQUITA DIAL on 07/11/17 1230 Prazosin HCl (Prazosin HCl) 1 Mg Capsule, 1 MG PO HS PRN for NIGHT TERRORS, (Reported) Entered as Reported by: MARQUITA DIAL on 07/11/17 1230 Prednisone (Prednisone) 10 Mg Tab.ds.pk, 10 MG PO DAILY Prescribed by: TYRONE LEONARD on 08/29/21 1112 Sertraline HCl (Sertraline HCl) 50 Mg Tablet, 50 MG PO 1200, (Reported) Entered as Reported by: MARQUITA DIAL on 07/11/17 1230 Review of Systems Review of Systems Constitutional: No chills, No fever EENTM: No blurred vision, No vision loss Respiratory: No cough Cardiovascular: No chest pain, No palpitations Gastrointestinal: No abdominal pain, No constipation, No diarrhea, No nausea, No vomiting Genitourinary: No dysuria, No frequency Musculoskeletal: No back pain; joint pain (left foot and ankle pain); No muscle weakness Skin: No lesions, No lumps, No rash Psychiatric/Neurological: Denies Numbness, Denies Paresthesia, Denies Weakness Hematologic/Lymphatic: No Symptoms Reported Immunological/Allergic: no symptoms reported (PATTI PEÑA) Past Vmmbfxu-Eequry-Tdyabv Hx Patient Social History Tobacco Use?: Yes Tobacco type used: Cigarettes Substance use?: No Alcohol Use?: No Pt feels they are or have been: Unable to obtain (PATTI PEÑA) Immunizations Up To Date Tetanus Booster (TDap): More than 5yrs Influenza Vaccine Up-to-Date: No; Not Current First/Initial COVID19 Vaccinat: YES Second COVID19 Vaccination Gilbert: YES Third COVID19 Vaccination Date: SEPTEMBER 20 (PATTI PEÑA STUDENT) Seasonal Allergies Seasonal Allergies: No (PATTI PEÑA) Past Medical History Surgery/Hospitalization HX: COPD, INSOMNIA Surgeries: Yes Bladder Surgery, Cardiac, Hysterectomy, Oophorectomy, Renal, Tubal Ligation Respiratory: Yes COPD Cardiac: Yes (NO MEDICATIONS) Coronary Artery Disease, High Cholesterol, Hypertension Neurological: Yes Headaches /Migraines Reproductive Disorders: Yes Female Reproductive Disorders: Menstrual Problems 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 HAWKINS--NORMAL -06/29/2014--COLONOSCOPY BY DR. BRAGA -02/20/2016--ROBOTIC ASSISTED TOTAL ABDOMINAL HYSTERECTOMY, BILATERAL SALPINGO-OOPHORECTOMY, LYSIS OF ADHESIONS, ANTERIOR COLPORRHAPHY FOR GENITAL PROLAPSE AND CYSTOCOELE--BY DR. ESTES -07/15/2017--LITHOTRIPSY BY DR. CONNOR -PT HAS HAD MULTIPLE PROCEDURES FOR KIDNEY STONES--BASKET REMOVALS, LITHOTRIPSY, AND HAS HAD OPEN LEFT KIDNEY REPAIR DUE TO "SCAR TISSUE" PER PT. 07/23/2018--NUCLEAR STRESS TEST BY DR. URIARTE: Conclusion: Pharmacological stress test was negative for ischemia. Normal LV function with no wall motion abnormalities. Normal myocardial perfusion imaging during rest and stress. (PATTI PEÑA MED STUDENT) Physical Exam Vital Signs Vital Signs - First Documented 02/11/22 08:36 Pulse 64 Resp 14 B/P (MAP) 132/91 (105) Pulse Ox 100 O2 Delivery Nasal Cannula O2 Flow Rate 3.00 (GWEN HSU MD) Vital Signs Capillary Refill : Less Than 3 Seconds (PATTI PEÑA MED STUDENT) Height, Weight, BMI Height: 5'8.00" Weight: 151lbs. 2.0oz. 68.306254fr; 22.00 BMI Method:Stated General Appearance: No Apparent Distress, WD/WN HEENT: PERRL/EOMI Neck: Full Range of Motion, Normal Inspection Respiratory: Chest Non Tender, No Accessory Muscle Use, No Respiratory Distress, Decreased Breath Sounds Cardiovascular: Regular Rate, Rhythm, No Murmur Gastrointestinal: Normal Bowel Sounds, Non Tender, Soft Extremity: Other (left lateral foot and lateral malleolus edema) Neurologic/Psychiatric: Alert, Oriented x3, Normal Mood/Affect; No Motor Weakness, No Sensory Deficit Skin: Warm/Dry, Ecchymosis (left lateral foot) Lymphatic: No Adenopathy (PATTI PEÑA MED STUDENT) Progress/Results/Core Measures Suspected Sepsis SIRS Temperature: Pulse: 64 Respiratory Rate: 14 Blood Pressure 132 /91 Mean: 105 (PATTI PEÑA MED STUDENT) Results/Orders My Orders Orders - GWEN HSU MD Foot, Left, 3 Views (02/11/22 08:50) (GWEN HSU MD) Vital Signs/I&O 02/11/22 08:36 Pulse 64 Resp 14 B/P (MAP) 132/91 (105) Pulse Ox 100 O2 Delivery Nasal Cannula O2 Flow Rate 3.00 (GWEN HSU MD) Vital Signs/I&O Capillary Refill : Less Than 3 Seconds (PATTI PEÑA MED STUDENT) Blood Pressure Mean: 105 Progress Note : Time: 09:33 Progress Note Patient is a 61yo who had a mechanical trip and fall last evening over a step. COmplaining of lateral left foot pain. She is able to walk but it is very painful. Denies hitting her head or LOC. No knee pain or hip pain. Has a history of COPD. Exam is pertinent for forefoot pain and pain over the prox 5th metatarsal. A little bruising over the dorsum and mild swelling, ow NVI. xrays reveal nondisplaced prx ulnar styloid. Will place in a casas dressing and a boot. f/u with orthopedics. (GWEN HSU MD) Diagnostic Imaging Diagonstic Imaging: Xray Comments NAME: JADEN GROVE MED REC#: [id number] PT STATUS: REG ER : 1960 PHYSICIAN: GWEN HSU MD ADMIT DATE: 02/11/22/ER Draft Date of Exam:02/11/22 FOOT, LEFT, 3 VIEWS INDICATION: Lateral left foot pain AP, oblique and lateral views of the left foot are obtained. There is a nondisplaced fracture at the base of 5th metatarsal without evidence of intra-articular extension. No other fracture or malalignment is identified. IMPRESSION: Nondisplaced fracture at base of 5th metatarsal without other acute abnormality detected. Dictated on workstation # [id number] Dict: 02/11/2235 Trans: 02/11/22 0938 [facility] [id number] Interpreted by: ESTEPHANIA WILSON MD Electronically signed by: (GWEN HSU MD) Departure Impression Primary Impression: Casas fracture Qualified Codes: S99.192A - Other physeal fracture of left metatarsal, initial encounter for closed fracture Disposition: 01 HOME, SELF-CARE Condition: Stable Departure-Patient Inst. Decision time for Depature: 09:38 (GWEN HSU MD) Referrals: SALOME LEPE MD (PCP/Family) Primary Care Physician NERISSA JOINER MD Patient Instructions: Foot Fracture ED Add. Discharge Instructions: The dressing in place and wear the boot while up and walking. You may take off the dressing and boot to bathe etc. Kqfi-vnv-lgptcll ibuprofen 3 tablets which is 600 mg every 6-8 hours as needed for pain. Always take ibuprofen with food. You can also alternate extra strength Tylenol 2 tablets every 6 hours. An ice pack to the foot while the boot is off will also help with swelling and discomfort. Keep your foot elevated while at rest. Please call the orthopedic office today for a follow-up appointment in 1 week. Return to the emergency department for any new, concerning or emergent complaints. Verification and Attestation of Medical Student E/M Service A medical student performed and documented this service in my presence. I reviewed and verified all information documented by the medical student and made modifications to such information, when appropriate. I personally performed the physical exam and medical decision making. Gwen Hsu, Feb 11, 2022,09:39 (GWEN HSU MD) Copy Copies To 1: NERISSA JOINER MD, [place] A MED STUDENT Feb 11, 2022 08:56 GWEN HSU MD Feb 11, 2022 09:37
--- NOTE | 2022-02-11 09:38 | Diagnostic Imaging Report ---
INDICATION: Lateral left foot pain AP, oblique and lateral views of the left foot are obtained. There is a nondisplaced fracture at the base of 5th metatarsal without evidence of intra-articular extension. No other fracture or malalignment is identified. IMPRESSION: Nondisplaced fracture at base of 5th metatarsal without other acute abnormality detected. Dictated by: Dictated on workstation # [id number]
[2022-02-11 10:05] VITALS: BP 142/91
== END 2022-02-11 10:05 | disposition home or self-care (01) ==
LOC: EDUNIT# 08:19 → ER 08:20
DX: S92.355A Nondisplaced fracture of fifth metatarsal bone, left foot, initial encounter for closed fracture (principal); F17.210 Nicotine dependence, cigarettes, uncomplicated; W10.9XXA Fall (on) (from) unspecified stairs and steps, initial encounter
CPT/HCPCS: 73630; 99283

== ENCOUNTER 2022-10-08 07:40 | Day surgery (SDC) | payer MEDICARE, MEDICAID ==
[2022-10-08] VITALS (8 sets, daily range): BP systolic 110–140; BP diastolic 70–94
[~2022-10-08] VITALS: Ht 172.7 cm; Wt 66.9 kg
[~2022-10-08 07:40] MED LIST changes: +ALBU8.5H6 IH; -RT-ALBUINH IH
[2022-10-08] MEDS ORDERED: NS IV 1000 ML 1,000 ML IV SCH ×2 (07:45→10:30)
[2022-10-08] MEDS ORDERED: NS IV 1000 ML 1,000 ML ONE (07:55)
[2022-10-08] MEDS ORDERED: HEParin (CATH LAB) 2,000 ML IV ONE (07:55)
[2022-10-08] MEDS ORDERED: LIDOCAINE 1% INJ 20 ML VIAL ONE (07:55)
[2022-10-08 08:24] LABS: HEMATOCRIT 45 % (35-52); HEMOGLOBIN 15.2 g/dL (11.5-16.0); MEAN CORPUSCULAR HEMOGLOBIN 33 pg (25-34); MEAN CORPUSCULAR HGB CONC 34 g/dL (32-36); MEAN CORPUSCULAR VOLUME 97 fL (80-99); MEAN PLATELET VOLUME 10.1 fL (9.0-12.2); PLATELET COUNT 175 10^3/uL (130-400); WHITE BLOOD COUNT 5.9 10^3/uL (4.3-11.0)
[2022-10-08 08:36] LABS: POTASSIUM 3.7 MMOL/L (3.6-5.0)
[2022-10-08 08:37] LABS: CALCIUM 10.5 MG/DL (8.5-10.1)
[2022-10-08 08:40] LABS: BILIRUBIN,TOTAL 0.5 MG/DL (0.1-1.0)
[2022-10-08 08:42] LABS: CREATININE SERUM 0.89 MG/DL (0.60-1.30)
[2022-10-08] MEDS ORDERED: ASPI-999 PO (08:43)
[2022-10-08] MEDS ORDERED: RT-ALBUINH INH (08:43)
[2022-10-08] MEDS ORDERED: LTH450TCR PO (08:43)
[2022-10-08] MEDS ORDERED: ATOR40TA70 PO (08:43)
[2022-10-08] MEDS ORDERED: MEMA10TA57 PO (08:43)
[2022-10-08] MEDS ORDERED: UMEC1BLS INH (08:43)
[2022-10-08] MEDS ORDERED: PRAZ1CAP2 PO (08:43)
[2022-10-08] MEDS ORDERED: SERT-413 PO (08:43)
[2022-10-08] MEDS ORDERED: MTP25TSR PO (08:43)
[2022-10-08] MEDS ORDERED: CLOP75TA28 PO (08:43)
[2022-10-08] MEDS ORDERED: BENR30AU SQ (08:43)
[2022-10-08] MEDS ORDERED: BUSP10TA95 PO (08:43)
[2022-10-08 08:45] LABS: PROTHROMBIN TIME PATIENT 13.7 SEC (12.2-14.7)
[2022-10-08] MEDS ORDERED: VERAPAMIL 5 MG/2 ML (CALAN) VIAL IV ONE (09:11)
[2022-10-08] MEDS ORDERED: fentaNYL INJ 100 MCG/2 ML AMP ONE (09:12)
[2022-10-08] MEDS ORDERED: HEParin 1000 UNIT/ML (10ML VIAL) FOR BOLUS ONE (09:12)
[2022-10-08] MEDS ORDERED: MIDAZOLAM 5 MG/5 ML (VERSED) VIAL ONE (09:12)
[2022-10-08] MEDS ORDERED: NITRO DRIP 25000 MCG/D5W 250 ML IV ONE (09:13)
[2022-10-08] MEDS ORDERED: meTOprolol 5 MG/5 ML (LOPRESSOR) VIAL ONE (10:13)
--- NOTE | 2022-10-08 10:17 | Cardiac Procedure Note-CS/ASA ---
Pre-Procedure Note Pre-Op Procedure Note Date of Available H&P: Sep 26, 2022 Date H&P Reviewed: October 08, 2022 Time H&P Reviewed: 09:45 History & Physical: H&P Reviewed, No changes noted Moderate Sedation PreProcedure ASA Score 3 Airway Lungs Heart ASA score ASA 1: a normal healthy patient ASA 2: a patient with a mild systemic disease (mid diabetes, controlled hypertension, obesity ASA 3: a patient with a severe systemic disease that limits activity (angina, COPD, prior Myocardial infarction) ASA 4: a patient with an incapacitating disease that is a constant threat to life (CHF, renal failure) ASA 5: a moribund patient not expected to survive 24 hrs. (ruptured aneurysm) ASA 6: a declared brain- patient whose organs are being harvested. For emergent operations, add the letter E after the classification Mallampati Classification Grade 2 Sedation Plan Analgesia, Amnesia, Plan communicated to team members The patient is an appropriate candidate to undergo the planned procedure, sedation, and anesthesia. The patient immediately re-assessed prior to indication. LANDON ALFARO MD FACP FAC CCDS October 08, 2022 10:17
--- NOTE | 2022-10-08 10:25 | Cardiac Cath Report ---
CARDIAC CATHETERIZATION DATE OF PROCEDURE: 10-08-22 INDICATION: Chest pain, shortness of breath, palpitations, h/o CAD HISTORY: The patient is a 62 year old female with chest pain, shortness of breath, palpitations, h/o CAD PROCEDURES PERFORMED: 1. LHC; 2. Cor angio PROCEDURE DESCRIPTION: After informed consent and in the fasting state, left heart catheterization was performed through the R radial artery utilizing a 5 Croatian system by percutaneous approach. TIG for cor angio. Pigtail for LHC and LV angio. All catheters were exchanged over a guidewire. HEMODYNAMICS: LVEDP 30 mmHg; PAF seen during the study; no significant pressure gradient on pullback across the aortic valve LV ANGIO: QUILES projection only; no wall motion abnormality; LVEF 65% CORONARY ANGIOGRAPHY: Left main coronary artery: Ok Left anterior descending coronary artery: approx 30% stenosis in the prox and mid vessel; approx 50% in mid D1 Left circumflex coronary artery: Dominant, Ok Right coronary artery: Small and non-dominant, Ok IMPRESSION: 1. Mild to mod CAD 2. Elevated LVEDP 3. LVEF 65% 4. PAF during study PLAN Add long-acting diltiazem for vent rate control and apixaban for stroke prophylaxis. D/c clopidogrel after starting apixaban (to reduce risk fo b leeding). Advised to quit smoking immediately and completely. Continue statin. Close outpt f/u LANDON ALFARO MD FACP [facility] CCDS October 08, 2022 10:25
[2022-10-08] MEDS ORDERED: APIX5TAB PO (10:29)
[2022-10-08] MEDS ORDERED: DILT120C82 PO (10:29)
--- NOTE | 2022-10-08 10:29 | Discharge Inst-Cardiology ---
Discharge Inst-Cardiac Discharge Medications New Medications: Apixaban (Eliquis) 5 Mg Tablet 5 MG PO BID, #60 TAB 5 Refills Diltiazem HCl (Cardizem Cd) 120 Mg Cap.er.24h 120 MG PO DAILY, #30 CAP 5 Refills Continued Medications: Albuterol Sulfate (Ventolin Hfa) 1 Puff Puff 1-2 PUFF INH Q4H PRN for SHORTNESS OF BREATH, EA Aspirin (Aspirin) 81 Mg Tab.chew 81 MG PO DAILY, TAB Atorvastatin Calcium (Atorvastatin Calcium) 40 Mg Tablet 40 MG PO DAILY, TAB Benralizumab (Fasenra Pen) 30 Mg/Ml Auto.injct 30 MG SQ [id number], ML Buspirone HCl (Buspirone HCl) 10 Mg Tablet 10 MG PO BID, TAB Maxbass Carbonate (Maxbass Carbonate ER) 450 Mg Tab 450 MG PO BID, TAB Memantine HCl (Memantine HCl) 10 Mg Tablet 10 MG PO HS, TAB Metoprolol Succinate (Metoprolol Succinate) 25 Mg Tab.er.24h 25 MG PO 1200, TAB Sertraline HCl (Sertraline HCl) 50 Mg Tablet 50 MG PO 1200, TAB Umeclidinium Brm/Vilanterol Tr (Anoro Ellipta 62.5-25 Mcg INH) 62.5 Mcg-25 Mcg/Actuation Blst.w.dev 1 PUFF INH HS, EA Discontinued Medications: Clopidogrel Bisulfate (Clopidogrel) 75 Mg Tablet 75 MG PO DAILY, TAB Prazosin HCl (Prazosin HCl) 1 Mg Capsule 1 MG PO HS PRN for NIGHT TERRORS, LANDON NUGENT MD FACP FAC CCDS October 08, 2022 10:29
[2022-10-08] MEDS ORDERED: dilTIAZem120 MG (CARDIZEM CD) CAP PO ONE (10:30)
[2022-10-08] MEDS ORDERED: PATIENT MAY USE OWN MEDS, ALL PO SCH (10:30)
[2022-10-08] MEDS ORDERED: APIXABAN 5 MG (ELIQUIS) TABLET PO ONE (10:30)
--- NOTE | 2022-10-08 10:30 | Discharge Inst-Post CATH ---
Discharge Inst-CATH/EP Post Cardiac Cath/EP D/C Inst Follow Up/Plan F/u with Dr Johansen in 2 weeks ACTIVITY * Go Home directly and rest. * Limit activity of the leg (or wrist if it was used) for 7 days including aerobics, swimming, jogging, bicycling, etc. * Restrict stair-climbing for 7 days if possible, if not, climb up with your no n-cath leg, then bring together on the same step. * Avoid lifting, pushing, pulling or excessive movement of the affected ext remity for 7 days. * Customary sexual activity may be resumed after 2 days-use caution not to use a position that strains or causes pain to the affected extremity. * No driving for 24 hours. * NO SMOKING. * Avoid straining for bowel movements for 7 days. * Gentle walking on level ground is allowed. * Returning to work will depend on the type of procedure and the results. Your doctor will discuss this with you. CALL YOUR DOCTOR FOR ANY OF THE FOLLOWING: *If bleeding from the puncture site occurs- Apply gentle pressure to site with clean cloth and call your doctor or EMS. * If a knot or lump forms under the skin, increases in size, or causes pain. * If bruising appears to be worsening or moving further down your leg instead of disappearing. * Temperature above 101 F. CARE OF YOUR GROIN INCISION; * Bruising or purple discoloration of the skin near the puncture site is common. * You may shower only, no bathtub bathing for 5 days. Be careful to avoid slipping as your leg may feel stiff. * If a closure device was used on your femoral artery, please see the attached guide regarding care of the device and your leg. * Leave dressing on FOR 24 hours. CARE OF YOUR WRIST INCISION; * Bruising or purple discoloration of the skin near the puncture site is common. * You may shower. * DO NOT submerge wrist. * Leave dressing on FOR 24 hours. LANDON JOHANSEN MD FACP FAC CCDS October 08, 2022 10:29
== END 2022-10-08 13:59 | disposition home or self-care (01) ==
LOC: CATH 07:40 → SDC 10:44 → CATH 13:59
PROVIDERS: ATTEND Internal Medicine Cardiovascular Disease
DX: I25.10 Atherosclerotic heart disease of native coronary artery without angina pectoris (principal); I48.0 Paroxysmal atrial fibrillation; E66.9 Obesity, unspecified; I49.1 Atrial premature depolarization; I49.3 Ventricular premature depolarization; I65.23 Occlusion and stenosis of bilateral carotid arteries; I10 Essential (primary) hypertension; I73.9 Peripheral vascular disease, unspecified; E78.2 Mixed hyperlipidemia; F17.210 Nicotine dependence, cigarettes, uncomplicated; Z79.82 Long term (current) use of aspirin; Z79.02 Long term (current) use of antithrombotics/antiplatelets; Z68.22 Body mass index [BMI] 22.0-22.9, adult; F31.9 Bipolar disorder, unspecified
CPT/HCPCS: 80053; 80061; 85027; 85610; 85730; 87081; 93005; 93458; C1894; 36415

== ENCOUNTER → 2023-01-14 | Day surgery (SDC) | payer MEDICARE, MEDICAID ==
[~2023-01-14] VITALS: Ht 172.7 cm; Wt 66.9 kg
[~2023-01-14] MED LIST changes: +APIX5TAB PO; +ASPI-999 PO; +ATOR40TA70 PO; +BENR30AU SQ; +BUSP10TA95 PO; +CLOP75TA28 PO; +DILT120C82 PO; +LIDOCAINE 1% INJ 20 ML VIAL INJ ONE; +LIDOCAINE 1% INJ 20 ML VIAL ONE; +MEMA10TA57 PO; +MTP25TSR PO; +RT-ALBUINH INH; +UMEC1BLS INH
--- NOTE | 2023-01-14 18:56 | OPERATIVE REPORT ---
DATE OF SERVICE: 01/14/2023 PREOPERATIVE DIAGNOSIS: Palpitations. POSTOPERATIVE DIAGNOSIS: Palpitations. PROCEDURE: Implantable loop recorder implantation. The patient is a 62-year-old lady who has a history of paroxysmal atrial fibrillation, which has been treated and she continues to have occasional palpitations, which she finds quite bothersome. Her marketing co op has recommended an implantable loop recorder implantation. This was carried out today after having obtained an informed consent. DESCRIPTION OF PROCEDURE: [facility] The left prepectoral area was prepared and draped in the usual sterile fashion. 1% lidocaine used for local anesthesia. The tools provided with the Medtronic LINQ II Device were used to make a subcutaneous pocket anterior to the fourth intercostal space. The device was placed in the pocket and the wound edges were closed using Dermabond and Steri-Strips. She tolerated the procedure well. The serial number of the device is [id number]. Job ID: [id number] DocumentID: [id number] Dictated Date: 01/14/2023 12:42:46 Resources Representative Date: 01/14/2023 18:54:00 Dictated By: LANDON ALFARO MD; BENEDICT; FACP; FACC;
== END ==
LOC: CATH 11:02
PROVIDERS: ATTEND Internal Medicine Cardiovascular Disease
DX: R00.2 Palpitations (principal); E66.9 Obesity, unspecified; R07.89 Other chest pain; I48.0 Paroxysmal atrial fibrillation; I65.23 Occlusion and stenosis of bilateral carotid arteries; I10 Essential (primary) hypertension; I49.1 Atrial premature depolarization; I49.3 Ventricular premature depolarization; I25.10 Atherosclerotic heart disease of native coronary artery without angina pectoris; E78.5 Hyperlipidemia, unspecified; M79.606 Pain in leg, unspecified; J44.9 Chronic obstructive pulmonary disease, unspecified; E78.2 Mixed hyperlipidemia; F31.9 Bipolar disorder, unspecified; F17.210 Nicotine dependence, cigarettes, uncomplicated; Z79.82 Long term (current) use of aspirin; Z68.22 Body mass index [BMI] 22.0-22.9, adult; Z79.01 Long term (current) use of anticoagulants; Z79.899 Other long term (current) drug therapy; Z99.81 Dependence on supplemental oxygen
CPT/HCPCS: 33285; C1764